=== PATIENT | male | born 1990 | race Caucasian/White ===

== ENCOUNTER 2016-09-07 10:42 | Inpatient (IN) | payer OTHER ==
[~2016-09-07 10:42] MED LIST: DOXY100T PO; SULF1TAB47 PO
[2016-09-07 10:44] VITALS: BP 143/98; PULSE 80; RESP 24; TEMP 97.7; O2SAT 96
--- NOTE | 2016-09-07 11:08 | PD ---
Physical Exam Time Seen by Provider: 11:04 Narrative 26yo M c/o low back pain x 2 months w/ worsening last night. +IVD use last night. Injected heroin. Hx of kidney failure. Denies dysuria, hematuria. Denies fever, vomiting. Patient seen in triage. VS reviewed. Awaiting bed placement. Data Data Last Documented VS Vital Signs Date Time Temp Pulse Resp B/P Pulse Ox O2 Delivery O2 Flow Rate FiO2 09/07/16 10:44 97.7 80 24 143/98 96 Room Air [facility] Supervised Visit with MATHEW: Iliana Hanks Sep 07, 2016 11:08
[2016-09-07] MEDS ORDERED: SODIUM CHLORIDE 0.9% FLUSH 10 ML FLUSH IVF PRN (11:15)
--- NOTE | 2016-09-07 11:17 | PD ---
HPI Chief Complaint: Back/ Neck Pain or Injury Time Seen by Provider: 11:17 Travel History International Travel<30 days: No Contact w/Intl Traveler<30days: No Traveled to known affect area: No History of Present Illness HPI 26-year-old male who is an IV drug abuser came to the emergency room for little progressing backache. Today he seems to be very uncomfortable and barely able to ambulate. Patient is not sure what started his pain. No history of trauma that he knows of upon asking he points to the right flank area with the pain. Patient used heroin prior to coming in. Vital signs were stable but patient looked extremely uncomfortable. No history of fever or chills. However patient used heroin prior to coming to the emergency room this morning. No history of future area. [facility] Past Medical History Narrative Medical List of his past medical, surgical, social and family history as reviewed from the nursing note. Anxiety: Yes Depression: Yes Diminished Hearing: No Immunizations Current: Yes Past Surgical History Tonsillectomy: Yes Social History Alcohol Use: Yes Tobacco Use: Yes Substance Use: Yes (MARIJUANA) Allergies-Medications (Allergen,Severity, Reaction): Coded Allergies: Ceclor (Verified Adverse Reaction, Intermediate, RASH AND HIVES, 09/07/16) Uncoded Allergies: CYCLORE (Allergy, Unknown, 03/15/09) Comments List of his allergies reviewed from the nursing note. Reported Meds & Prescriptions Reported Meds & Active Scripts Active No Active Prescriptions or Reported Medications Narrative Medication List of his home medications are reviewed from the nursing note. Review of Systems Except as stated in HPI: all other systems reviewed are Neg Physical Exam Narrative GENERAL: Awake, alert, moderate distress SKIN: Focused skin assessment warm/dry. HEAD: Atraumatic. Normocephalic. EYES: Pupils equal and round. No scleral icterus. No injection or drainage. ENT: No nasal bleeding or discharge. Mucous membranes dry NECK: Trachea midline. No JVD. CARDIOVASCULAR: Regular rate and rhythm. No murmur appreciated. RESPIRATORY: No accessory muscle use. Clear to auscultation. Breath sounds equal bilaterally. GASTROINTESTINAL: Abdomen soft, non-tender, nondistended. Hepatic and splenic margins not palpable. Right flank tenderness MUSCULOSKELETAL: No obvious deformities. No clubbing. No cyanosis. No edema. NEUROLOGICAL: Awake and alert. No obvious cranial nerve deficits. Motor grossly within normal limits. Normal speech. PSYCHIATRIC: Appropriate mood and affect; insight and judgment normal. Data Data Last Documented VS Vital Signs Date Time Temp Pulse Resp B/P Pulse Ox O2 Delivery O2 Flow Rate FiO2 09/07/16 16:40 66 16 135/89 99 Room Air 09/07/16 10:44 97.7 Orders Sodium Chloride 0.9% Flush (Ns Flush) (09/07/16 11:15) Complete Blood Count With Diff (09/07/16 11:21) Comprehensive Metabolic Panel (09/07/16 11:21) Lactic Acid Sepsis Protocol (09/07/16 11:21) Urinalysis - C+S If Indicated (09/07/16 11:21) Blood Culture (09/07/16 11:21) Chest, Single Ap (09/07/16 11:21) Blood Glucose (09/07/16 11:21) Ecg Monitoring (09/07/16 11:21) Iv Access Insert/Monitor (09/07/16 11:21) Oximetry (09/07/16 11:21) Oxygen Administration (09/07/16 11:21) Sodium Chlor 0.9% 1000 Ml Inj (Ns 1000 M (09/07/16 11:21) Sodium Chlor 0.9% 1000 Ml Inj (Ns 1000 M (09/07/16 11:21) Sodium Chlor 0.9% 1000 Ml Inj (Ns 1000 M (09/07/16 11:21) Ct Abd/Pel W Iv Contrast(Rout) (09/07/16 ) Ketorolac Inj (Toradol Inj) (09/07/16 11:30) Morphine Inj (Morphine Inj) (09/07/16 11:30) Iohexol 350 Inj (Omnipaque 350 Inj) (09/07/16 13:01) Mri T Spine W & W/O Contrast (09/07/16 ) Lorazepam (Ativan) (09/07/16 14:30) Mri C Spine W&W/O Contrast (09/07/16 ) Gadodiamide Pf Inj (Omniscan Pf Inj) (09/07/16 15:40) Electrocardiogram (09/07/16 12:32) Piperacil-Tazo 4.5 Gm Premix (Zosyn 4.5 (09/07/16 16:45) Vancomycin Inj (Vancomycin Inj) (09/07/16 16:45) Admit Order (Ed Use Only) (09/07/16 16:52) Disc Aspiration/Biopsy (09/07/16 ) Labs Laboratory Tests Test 09/07/16 09/07/16 11:40 12:25 White Blood Count 8.1 TH/MM3 Red Blood Count 5.67 MIL/MM3 Hemoglobin 14.5 GM/DL Hematocrit 45.2 % Mean Corpuscular Volume 79.8 FL Mean Corpuscular Hemoglobin 25.6 PG Mean Corpuscular Hemoglobin 32.1 % Concent Red Cell Distribution Width 16.3 % Platelet Count 225 TH/MM3 Mean Platelet Volume 8.2 FL Neutrophils (%) (Auto) 71.5 % Lymphocytes (%) (Auto) 17.1 % Monocytes (%) (Auto) 6.2 % Eosinophils (%) (Auto) 4.9 % Basophils (%) (Auto) 0.3 % Neutrophils # (Auto) 5.8 TH/MM3 Lymphocytes # (Auto) 1.4 TH/MM3 Monocytes # (Auto) 0.5 TH/MM3 Eosinophils # (Auto) 0.4 TH/MM3 Basophils # (Auto) 0.0 TH/MM3 CBC Comment DIFF FINAL Differential Comment Sodium Level 137 MEQ/L Potassium Level 4.0 MEQ/L Chloride Level 104 MEQ/L Carbon Dioxide Level 26.4 MEQ/L Anion Gap 7 MEQ/L Blood Urea Nitrogen 21 MG/DL Creatinine 0.94 MG/DL Estimat Glomerular Filtration 96 ML/MIN Rate Random Glucose 89 MG/DL Lactic Acid Level 0.7 mmol/L Calcium Level 9.1 MG/DL Total Bilirubin 0.2 MG/DL Aspartate Amino Transf 25 U/L (AST/SGOT) Alanine Aminotransferase 46 U/L (ALT/SGPT) Alkaline Phosphatase 87 U/L Total Protein 8.8 GM/DL Albumin 4.0 GM/DL Urine Color YELLOW Urine Turbidity CLEAR Urine pH 5.0 Urine Specific [place] 1.015 Urine Protein NEG mg/dL Urine Glucose (UA) NEG mg/dL Urine Ketones NEG mg/dL Urine Occult Blood NEG Urine Nitrite NEG Urine Bilirubin NEG Urine Urobilinogen LESS THAN 2.0 MG/DL Urine Leukocyte Esterase NEG Urine RBC LESS THAN 1 /hpf Urine WBC 1 /hpf Urine Squamous Epithelial <1 /hpf Cells Urine Mucus FEW /lpf Microscopic Urinalysis Comment CULT NOT INDICATED MDM Medical Decision Making Medical Screen Exam Complete: Yes Emergency Medical Condition: Yes Medical Record Reviewed: Yes Differential Diagnosis Renal colic, pyelonephritis, musculoskeletal pain Narrative Course 12:47 PM awaiting for the CAT scan to be done and resulted. Awaiting for the UA. Blood test results are within normal limit. Patient was medicated for pain. He is getting IV fluid bolus as well. Lactic acid was within normal limit. 1:[address] scan showed disc space narrowing at T11-T12 and radiologist is recommending an MRI. MRI with and without contrast was ordered. Awaiting for the to be done and resulted. 4:48 PM MRI report shows discitis and osteomyelitis at T11-T12 level. Patient has been given a broad-spectrum IV antibiotic coverage. Awaiting for the neurosurgeon and hospitalist to call back for admission. 4:58 PM I discussed the case with the neurosurgeon and he wanted IR to do the aspiration of the disc and to send for culture and hold the antibiotic until then. 5:03 PM case was discussed with Dr. Sarmiento from radiology who will take the patient for aspiration. And has been made aware of this and his hospitalization. He understands. Critical Care Narrative Aggregate critical care time was 45 minutes. Time to perform other separately billable procedures was not included in the critical care time. My time did not include minutes spent treating any other patients simultaneously or on activities that did not directly contribute to the patient's treatment. The services I provided to this patient were to treat and/or prevent clinically significant deterioration that could result in: Severe back pain, IV drug abuser, discitis, osteomyelitis I provided critical care services requiring my management, as noted below: Chart data review, documentation time, medication orders and management, vital sign assessments/reviewing monitor data, ordering and reviewing lab tests, ordering and interpreting/reviewing x-rays and diagnostic studies, care of the patient and discussion of the patient with the admitting physicians. Procedures EKG Prior to Arrival: No Physician Communication Physician Communication Dr. Leonard Diagnosis Primary Impression: Discitis of thoracic region Additional Impression: Osteomyelitis Qualified Code: M86.08 - Acute hematogenous osteomyelitis of other site Admitting Information Admitting Physician Requests: Admit Scripts No Active Prescriptions or Reported Meds Lolis Yates MD Sep 07, 2016 11:17
[2016-09-07 11:18] VITALS: BP 156/104; PULSE 82; RESP 22; O2SAT 100
[2016-09-07] MEDS ORDERED: SODIUM CHLOR 0.9% 1000 ML INJ 100 ML IV ONE (11:21)
[2016-09-07] MEDS ORDERED: SODIUM CHLOR 0.9% 1000 ML INJ 1,000 ML IV ONE ×2 (11:21)
[2016-09-07] MEDS ORDERED: MORPHINE SULFATE 4 MG/ML INJ IV PUSH ONE (11:30)
[2016-09-07] MEDS ORDERED: KETOROLAC TROMETHAMINE 30 MG/ML (IVP) VIAL IV PUSH ONE (11:30)
[2016-09-07 12:09] LABS: AUTOMATED NEUTROPHIL # 5.8 TH/MM3 (1.8-7.7); BASOPHIL % 0.3 % (0.0-2.0); EOSINOPHIL # 0.4 TH/MM3 (0-0.4); EOSINOPHIL % 4.9 % (0.0-4.0); HEMATOCRIT 45.2 % (39.0-51.0); HEMO FLAGS DIFF FINAL; LYMPH % 17.1 % (9.0-44.0); LYMPHOCYTE # 1.4 TH/MM3 (1.0-4.8); MEAN CELL VOLUME 79.8 FL (80.0-100.0); MEAN CORPUSCULAR HEMOGLOBIN 25.6 PG (27.0-34.0); MEAN CORPUSCULAR HGB CONC 32.1 % (32.0-36.0); MONO % 6.2 % (0.0-8.0); NEUT % 71.5 % (16.0-70.0); PLATELET COUNT 225 TH/MM3 (150-450); RED BLOOD COUNT 5.67 MIL/MM3 (4.50-5.90); RED CELL DISTRIBUTION WIDTH 16.3 % (11.6-17.2); WHITE BLOOD COUNT 8.1 TH/MM3 (4.0-11.0)
[2016-09-07 12:24] LABS: ALT (GPT) 46 U/L (12-78); ANION GAP 7 MEQ/L (5-15); AST (GOT) 25 U/L (15-37); BICARBONATE 26.4 MEQ/L (21.0-32.0); BLOOD UREA NITROGEN 21 MG/DL (7-18); CHLORIDE 104 MEQ/L (98-107); GLOMERULAR FILTRATION RATE 96 ML/MIN (>89); SODIUM (NA) 137 MEQ/L (136-145)
[2016-09-07 12:26] LABS: ALKALINE PHOSPHATASE 87 U/L (45-117); TOTAL BILIRUBIN ADULT 0.2 MG/DL (0.2-1.0)
--- NOTE | 2016-09-07 13:00 | RADRPT ---
EXAM DATE/TIME: 09/07/2016 12:26 [facility] COMPARISON: CHEST SINGLE AP, March 15, 2009, 6:54. INDICATIONS : Cough. MEDICAL HISTORY : None. SURGICAL HISTORY : None. ENCOUNTER: Initial ACUITY: 1 day PAIN SCORE: 0/10 LOCATION: Bilateral chest FINDINGS: A single view of the chest demonstrates the lungs to be symmetrically aerated without evidence of mas s, infiltrate or effusion. The cardiomediastinal contours are unremarkable. Osseous structures are intact. CONCLUSION: 1. No acute cardiopulmonary findings. Stable compared to previous dated 03/15/09. Audi Sarmiento MD on September 07, 2016 at 12:57 Board Certified Radiologist. This report was verified electronically.
[2016-09-07] MEDS ORDERED: IOHEXOL 350 MG/ML 10 ML VIAL (for RAD DIAG) IV ONE (13:01)
[2016-09-07 13:02] LABS: BLOOD, URINE NEG (NEG); COMMENT (UR) CULT NOT INDICATED; CULTURE IF INDICATED CULT NOT INDICATED; GLUCOSE,URINE NEG (NEG); KETONE, URINE NEG (NEG); MUCUS URINE FEW /lpf (OCC); NITRITE,URINE NEG (NEG); SQUAMOUS EPITHELIAL CELL URINE <1 /hpf (0-5); URINE COLOR YELLOW (YELLW/STRAW)
--- NOTE | 2016-09-07 13:24 | RADRPT ---
EXAM DATE/TIME: 09/07/2016 12:48 [facility] COMPARISON: No previous studies available for comparison. INDICATIONS : Lower back pain for two months. IV CONTRAST: 96 cc Omnipaque 350 (iohexol) IV ORAL CONTRAST: No oral contrast ingested. RADIATION DOSE: 4.64 CTDIvol (mGy) MEDICAL HISTORY : None Iv drug use. SURGICAL HISTORY : None. ENCOUNTER: Initial ACUITY: 1 day PAIN SCALE: 5/10 LOCATION: Bilateral lower back TECHNIQUE: Volumetric scanning of the abdomen and pelvis was performed. Using automated exposure control and adjustment of the mA and/or kV according to patient size, radiation dose was kept as low as reasonably achievable to obtain optimal diagnostic quality images. FINDINGS: LOWER LUNGS: The visualized lower lungs are clear. LIVER: Homogeneous density without lesion. There is no dilation of the biliary tree. No calcifi ed gallstones. SPLEEN: Mild splenomegaly is noted. PANCREAS: Within normal limits. KIDNEYS: Normal in size and shape. There is no mass, stone or hydronephrosis. ADRENAL GLANDS: Within normal limits. VASCULAR: There is no aortic aneurysm. BOWEL/MESENTERY: The stomach, small bowel, and colon demonstrate no acute abnormality. There is no free intraperitoneal air or fluid. ABDOMINAL WALL: Within normal limits. RETROPERITONEUM: There is no lymphadenopathy. BLADDER: No wall thickening or mass. REPRODUCTIVE: Within normal limits. INGUINAL: There is no lymphadenopathy or hernia. MUSCULOSKELETAL: There is disc space narrowing at T11-12 as well as sclerosis surrounding this di sc level. MRI of the thoracic spine with contrast may be helpful for further evaluation if clinically indicated. CONCLUSION: 1. Mild splenomegaly. 2. Disc space narrowing at T11-12 as well as sclerosis surrounding this disc level. MRI of the thorac ic spine with contrast may be helpful for further evaluation if clinically indicated. Yonatan Cruz MD on September 07, 2016 at 13:17 Board Certified Radiologist. This report was verified electronically.
[2016-09-07 13:47] VITALS: BP 128/87; PULSE 61; RESP 16; O2SAT 99
[2016-09-07] MEDS ORDERED: LORazepam 1 MG TAB PO ONE (14:30)
[2016-09-07] MEDS ORDERED: GADODIAMIDE PF 287 MG/ML 5 ML VIAL (for RAD MRI) IV ONE (15:40)
--- NOTE | 2016-09-07 16:27 | RADRPT ---
EXAM DATE/TIME: 09/07/2016 15:08 [facility] COMPARISON: No previous studies available for comparison. INDICATIONS : Pain. Neck pain starting six months ago, no known injury. CONTRAST: 13 cc Omniscan (gadodiamide) IV MEDICAL HISTORY : None. IVDU. SURGICAL HISTORY : Hand. ENCOUNTER: Initial ACUITY: 1 day PAIN SCORE: 3/10 LOCATION: Back. TECHNIQUE: Multiplanar, multisequence MRI examination of the cervical spine was performed. FINDINGS: Alignment: A grade 2 retrolisthesis is noted of C6 on C7. Craniocervical and cervical vertebral body alignment i s otherwise well preserved. Osseous structures and facet joints: Deformity is identified of the C6 and C7 vertebral bodies. Both vertebral bodies demonstrate loss of height. There is a least partial ankylosis with fusion along the endplates. The disc space is no long er visualized. The retrolisthesis as well as posterior buckling of the vertebral bodies has resulted in anterior epidural effacement which abuts but does not significantly efface the spinal cord. Mild T 2 hyperintensity and enhancement is seen in the disc space. There is mild enhancement of the anterior epidural soft tissues along the posterior vertebral body margin at C6 and C7. There are no abnormal fluid collections or significant soft tissue swelling or paraspinal soft tissue enhancement.Cervical vertebral bodies and posterior elements are otherwise unremarkable. Intervertebral disc spaces: The C6-7 intervertebral disc is completely collapsed and as described above there is at least partial ankylosis of the vertebral bodies. The cervical disc are otherwise unremarkable. There is no evidence of focal disc herniation, increase d T2 signal or enhancement. Neurologic structures: The spinal cord is normal in caliber and signal intensity. There is slight abutment at the C6-7 level as described. There is no evidence of abnormal enhancement. CONCLUSION: Deformity of the C6 and C7 vertebral bodies with collapse of the disc and suspected p artial ankylosis. There is mild enhancement along fused endplates and anterior epidural soft tissue w hich may represent scar tissue. These findings are most characteristic of either posttraumatic or pos tinflammatory disease. No significant active inflammatory disease is suspected. There is no evidence of epidural or paraspin al abscess or abnormal spinal cord enhancement. No acute bony abnormality or disc herniation. Farhat Johnson MD on September 07, 2016 at 16:13 Board Certified Radiologist. This report was verified electronically.
--- NOTE | 2016-09-07 16:34 | RADRPT ---
EXAM DATE/TIME: 09/07/2016 15:08 [facility] COMPARISON: No previous studies available for comparison. INDICATIONS : Pain. Back pain started three months ago with no known injury. CONTRAST: 13 cc Omniscan (gadodiamide) IV MEDICAL HISTORY : Hypertension. IVDU. SURGICAL HISTORY : Hand surgery. ENCOUNTER: Initial ACUITY: 1 day PAIN SCORE: 4/10 LOCATION: Back. TECHNIQUE: Multiplanar multisequence MRI of the thoracic spine was performed. FINDINGS: Alignment: Thoracic vertebral bodies are satisfactory alignment without significant listhesis. Osseous structures and facet joints: Diffuse bone marrow edema and abnormal enhancement is identified throughout the T11 and T12 vertebral bodies. Significant endplate irregularity is noted. Significant paraspinal soft tissue enhancement is noted especially along the left side of the disc. Thoracic vertebral bodies are otherwise intact. Intervertebral disc spaces: The T11-12 intervertebral disc demonstrates enteric intensity with diffuse enhancement. Significant e ndplate irregularity is noted. The thoracic intervertebral discs are otherwise unremarkable. Neurologic structures: Spinal cord is normal in caliber and signal intensity. There is no evidence of epidural fluid collect ions. CONCLUSION: T11-12 discitis with diffuse enhancement of the T11 and T12 vertebral bodies characte ristic of osteomyelitis. Paraspinal inflammatory tissue. No evidence of epidural abscess or myelitis. Farhat Johnson MD on September 07, 2016 at 16:25 Board Certified Radiologist. This report was verified electronically.
[2016-09-07 16:40] VITALS: BP 135/89; PULSE 66; RESP 16; O2SAT 99
[2016-09-07] MEDS ORDERED: VANCOMYCIN INJ 1,000 MG in SODIUM CHLOR 0.9% 250 ML INJ 250 ML IV ONE (16:45)
[2016-09-07] MEDS: PIPERACIL-TAZO 4.5 GM PREMIX 100 ML IV ONE ×2 (16:58→18:39)
[2016-09-07 17:38] LABS: PROTHROMBIN TIME - PATIENT 11.2 SEC (9.8-11.6)
[2016-09-07] MEDS ORDERED: ENOXAPARIN SODIUM 40 MG/0.4 ML SYRINGE SQ SCH (17:45)
[2016-09-07] MEDS ORDERED: MAGNESIUM HYDROXIDE SUSP 30 ML CUP PO PRN (17:45)
[2016-09-07] MEDS ORDERED: ONDANSETRON HCL 4 MG/2 ML VIAL IVP PRN (17:45)
[2016-09-07] MEDS ORDERED: NALOXONE HCL 0.4 MG/ML AMP IV PRN (17:45)
[2016-09-07] MEDS ORDERED: BISACODYL 10 MG SUPP RECTAL PRN (17:45)
[2016-09-07] MEDS ORDERED: LACTULOSE SYRUP 20 GM/30 ML CUP PO PRN (17:45)
[2016-09-07] MEDS ORDERED: SENNOSIDES 8.6 MG TAB PO PRN (17:45)
[2016-09-07] MEDS ORDERED: fentaNYL CITRATE 250 MCG/5 ML AMP ONE (17:50)
[2016-09-07] MEDS ORDERED: MIDAZOLAM HCL 5 MG/5 ML VIAL ONE (17:50)
--- NOTE | 2016-09-07 18:00 | HHI.HP ---
[facility] No Primary Care Physician Admission Diagnosis discitis, osteomyelitis, IV drug abuser Diagnoses: Chief Complaint: Intractable lower back pain Travel History International Travel<30 Days: No Contact w/Intl Traveler <30 Da: No Traveled to Known Affected Are: No History of Present Illness This is a 26-year-old male past medical history of IV drug use drug of choice is heroin who presented with intractable lower back pain. Patient stated 6 months ago he had lower back pain that was intermittent and resolved on its own. Patient then stated that 3 months ago pain occurred again but he started methadone from the methadone clinic in which pain resolved. Patient stated that he stopped methadone 2 weeks ago and did well off of it. He then stated that yesterday night after doing pushups he had severe lower back pain described as sharp radiating to his flank area that was constant. Patient stated last time he used IV drugs was 2 years ago. He denies any fevers or chills. Denies any lower extremity weakness. Patient also denied any urinary or fecal incontinence. Patient stated that he was given 95 mg daily of methadone but stopped it abruptly. He stated that he has a high tolerance for pain. Review of Systems Constitutional: DENIES: Diaphoretic episodes, Fatigue, Fever, Weight gain, Weight loss, Chills, Dizziness, Change in appetite, Night Sweats Endocrine: DENIES: Heat/cold intolerance, Polydipsia, Polyuria, Polyphagia Eyes: DENIES: Blurred vision, Diplopia, Eye inflammation, Eye pain, Vision loss , Photosensitivity, Double Vision Ears, nose, mouth, throat: DENIES: Tinnitus, Hearing loss, Vertigo, Nasal discharge, Oral lesions, Throat pain, Hoarseness, Ear Pain, Running Nose, Epistaxis, Sinus Pain, Toothache, Odynophagia Respiratory: DENIES: Apneas, Cough, Snoring, Wheezing, Hemoptysis, Sputum production, Shortness of breath Cardiovascular: DENIES: Chest pain, Palpitations, Syncope, Dyspnea on Exertion , PND, Lower Extremity Edema, Orthopnea, Claudication Gastrointestinal: DENIES: Abdominal pain, Black stools, Bloody stools, Constipation, Diarrhea, Nausea, Vomiting, Difficulty Swallowing, Anorexia Genitourinary: DENIES: Sexual dysfunction, Urinary frequency, Urinary incontinence, Urgency, Hematuria, Dysuria, Nocturia, Penile Discharge, Testicular Pain, Testicular Swelling Musculoskeletal: COMPLAINS OF: Back pain, DENIES: Joint pain, Muscle aches, Stiffness, Joint Swelling, Neck pain Integumentary: DENIES: Abnormal pigmentation, Nail changes, Pruritus, Rash Hematologic/lymphatic: DENIES: Bruising, Lymphadenopathy Immunologic/allergic: DENIES: Eczema, Urticaria Neurologic: DENIES: Abnormal gait, Headache, Localized weakness, Paresthesias, Seizures, Speech Problems, Tremor, Poor Balance Psychiatric: DENIES: Anxiety, Confusion, Mood changes, Depression, Hallucinations, Agitation, Suicidal Ideation, Homicidal Ideation, Delusions Past Family Social History Past Medical History History of IV drug use with heroin. Per patient he stopped 2 years ago. Opioid dependence Tobacco dependence History of acute renal failure that required dialysis that resolved Past Surgical History History of a tunnel catheter for dialysis Reported Medications Reported Meds & Active Scripts Active No Active Prescriptions or Reported Medications Allergies: Coded Allergies: Ceclor (Verified Adverse Reaction, Intermediate, RASH AND HIVES, 09/07/16) Uncoded Allergies: CYCLORE (Allergy, Unknown, 03/15/09) Active Ordered Medications Current Medications Sodium Chloride 2 ml 2 ml UNSCH PRN IVF FLUSH AFTER USING IV ACCESS; Start at 11:15; Stop 09/07/16 at 11:15; Status DC Sodium Chloride 1,000 ml @ 1,000 mls/hr Q1H ONCE IV Last administered on 12:02; Start 09/07/16 at 11:21; Stop 09/07/16 at 12:20; Status DC Sodium Chloride 1,000 ml @ 1,000 mls/hr Q1H ONCE IV Last administered on 12:02; Start 09/07/16 at 11:21; Stop 09/07/16 at 12:20; Status DC Sodium Chloride (NS 1000 ml Inj) 100 ml @ 1,000 mls/hr Q6M ONCE IV ; Start at 11:21; Stop 09/07/16 at 11:26; Status DC Ketorolac Tromethamine (Toradol Inj) 30 mg ONCE ONCE IV PUSH Last administered on 09/07/16 12:03; Start 09/07/16 at 11:30; Stop 09/07/16 at 11:31 ; Status DC Morphine Sulfate (Morphine Inj) 4 mg ONCE ONCE IV PUSH Last administered on 12:02; Start 09/07/16 at 11:30; Stop 09/07/16 at 11:31; Status DC Iohexol (Omnipaque 350 Inj) 93 ml STK-MED ONCE IV Last administered on 13:01; Start 09/07/16 at 13:01; Stop 09/07/16 at 13:02; Status DC Lorazepam (Ativan) 1 mg ONCE ONCE PO Last administered on 09/07/16 14:44; Start 09/07/16 at 14:30; Stop 09/07/16 at 14:33; Status DC Gadodiamide 13 ml 13 ml STK-MED ONCE IV Last administered on 09/07/16 15:40; Start 09/07/16 at 15:40; Stop 09/07/16 at 15:41; Status DC Piperacillin Sod/ Tazobactam Sod 100 ml @ 200 mls/hr ONCE ONCE IV ; Start at 16:45; Stop 09/07/16 at 17:14; Status DC Vancomycin HCl 1000 mg/Sodium Chloride 250 ml @ 250 mls/hr ONCE ONCE IV ; Start 09/07/16 at 16:45; Stop 09/07/16 at 17:44; Status DC Sodium Chloride (NS 1000 ml Inj) 1,000 ml @ 100 mls/hr Q10H IV ; Start at 17:36; Status UNV Sodium Chloride (NS Flush) 2 ml UNSCH PRN IV FLUSH FLUSH AFTER USING IV ACCESS ; Start 09/07/16 at 17:45; Status UNV Sodium Chloride (NS Flush) 2 ml BID IV FLUSH ; Start 09/07/16 at 21:00; Status UNV Ondansetron HCl (Zofran Inj) 4 mg Q6H PRN IVP NAUSEA OR VOMITING; Start at 17:45; Status UNV Enoxaparin Sodium (Lovenox Inj) 40 mg Q24H SQ ; Start 09/07/16 at 17:45; Stop 6 /15/17 at 17:45; Status DC Naloxone HCl (Narcan Inj) 0.4 mg UNSCH PRN IV SEE LABEL COMMENTS; Start at 17:45; Status UNV Senna/Docusate Sodium (Simona-Colace) 1 tab BID PO ; Start 09/07/16 at 21:00; Status UNV Magnesium Hydroxide (Milk Of Magnesia Liq) 30 ml Q12H PRN PO MILD - MODERATE CONSTIPATION; Start 09/07/16 at 17:45; Status UNV Sennosides (Senokot) 17.2 mg Q12H PRN PO MODERATE - SEVERE CONSTIPATION; Start 09/07/16 at 17:45; Status UNV Bisacodyl (Dulcolax Supp) 10 mg DAILY PRN RECTAL SEVERE CONSITIPATION; Start at 17:45; Status UNV Lactulose (Lactulose Liq) 30 ml DAILY PRN PO SEVERE CONSITIPATION; Start at 17:45; Status UNV Nicotine (Habitrol 14 Mg Patch.24 Hr) 1 patch DAILY T-DERMAL ; Start 09/07/16 at 17:45; Status UNV Miscellaneous Information 1 HS T-DERMAL ; Start 09/07/16 at 21:00; Status UNV Midazolam HCl (Versed Inj) 5 mg STK-MED ONCE .ROUTE ; Start 09/07/16 at 17:50; Stop 09/07/16 at 17:51; Status DC Fentanyl Citrate (fentaNYL INJ) 250 mcg STK-MED ONCE .ROUTE ; Start 09/07/16 at 17:50; Stop 09/07/16 at 17:51; Status DC Family History Patient stated that all family members are healthy. He denies any history of diabetes, cardiovascular disease or cancer in the family. Social History Patient smokes half a pack per day for the past 10 years. Denies any alcohol use. Positive for opioid dependence. Physical Exam Vital Signs Vital Signs Date Time Temp Pulse Resp B/P Pulse Ox O2 Delivery O2 Flow Rate FiO2 09/07/16 16:40 66 16 135/89 99 Room Air 09/07/16 13:47 61 16 128/87 99 Room Air 09/07/16 11:18 82 22 156/104 100 Room Air 09/07/16 10:44 97.7 80 24 143/98 96 Room Air Physical Exam GENERAL: This is a well-nourished, well-developed patient, in no apparent distress. SKIN: No rashes, ecchymoses or lesions. Cool and dry. HEAD: Atraumatic. Normocephalic. No temporal or scalp tenderness. EYES: Pupils equal round and reactive. Extraocular motions intact. No scleral icterus. No injection or drainage. ENT: Nose without bleeding, purulent drainage or septal hematoma. Throat without erythema, tonsillar hypertrophy or exudate. Uvula midline. Airway patent. NECK: Trachea midline. No JVD or lymphadenopathy. Supple, nontender, no meningeal signs. CARDIOVASCULAR: Regular rate and rhythm without murmurs, gallops, or rubs. RESPIRATORY: Clear to auscultation. Breath sounds equal bilaterally. No wheezes , rales, or rhonchi. GASTROINTESTINAL: Abdomen soft, non-tender, nondistended. No hepato-splenomegaly , or palpable masses. No guarding. MUSCULOSKELETAL: Extremities without clubbing, cyanosis, or edema. No joint tenderness, effusion, or edema noted. No calf tenderness. Negative Homans sign bilaterally. Tenderness to palpation of the lower back. No paraspinal muscle spasm. Lower back Limited range of motion secondary to pain. NEUROLOGICAL: Awake and alert. Cranial nerves II through XII intact. Motor and sensory grossly within normal limits. Five out of 5 muscle strength in all muscle groups. Normal speech. Laboratory Laboratory Tests Test 09/07/16 09/07/16 09/07/16 11:40 12:25 17:03 White Blood Count 8.1 Red Blood Count 5.67 Hemoglobin 14.5 Hematocrit 45.2 Mean Corpuscular Volume 79.8 Mean Corpuscular Hemoglobin 25.6 Mean Corpuscular Hemoglobin 32.1 Concent Red Cell Distribution Width 16.3 Platelet Count 225 Mean Platelet Volume 8.2 Neutrophils (%) (Auto) 71.5 Lymphocytes (%) (Auto) 17.1 Monocytes (%) (Auto) 6.2 Eosinophils (%) (Auto) 4.9 Basophils (%) (Auto) 0.3 Neutrophils # (Auto) 5.8 Lymphocytes # (Auto) 1.4 Monocytes # (Auto) 0.5 Eosinophils # (Auto) 0.4 Basophils # (Auto) 0.0 CBC Comment DIFF FINAL Differential Comment Sodium Level 137 Potassium Level 4.0 Chloride Level 104 Carbon Dioxide Level 26.4 Anion Gap 7 Blood Urea Nitrogen 21 Creatinine 0.94 Estimat Glomerular Filtration 96 Rate Random Glucose 89 Lactic Acid Level 0.7 Calcium Level 9.1 Total Bilirubin 0.2 Aspartate Amino Transf 25 (AST/SGOT) Alanine Aminotransferase 46 (ALT/SGPT) Alkaline Phosphatase 87 Total Protein 8.8 Albumin 4.0 Urine Color YELLOW Urine Turbidity CLEAR Urine pH 5.0 Urine Specific [place] 1.015 Urine Protein NEG Urine Glucose (UA) NEG Urine Ketones NEG Urine Occult Blood NEG Urine Nitrite NEG Urine Bilirubin NEG Urine Urobilinogen LESS THAN 2.0 Urine Leukocyte Esterase NEG Urine RBC LESS THAN 1 Urine WBC 1 Urine Squamous Epithelial <1 Cells Urine Mucus FEW Microscopic Urinalysis Comment CULT NOT INDICATED Prothrombin Time 11.2 Prothromb Time International 1.0 Ratio Date/Time Procedure Status Source Growth 09/07/16 11:45 Aerobic Blood Culture Received Blood Peripheral Pending 09/07/16 11:45 Anaerobic Blood Culture Received Blood Peripheral Pending Result Diagram: 09/07/16 1140 09/07/16 1140 Imaging Last Impressions Chest X-Ray 09/07/16 1121 Signed Impressions: Service Date/Time: August 12:26 - CONCLUSION: 1. No acute cardiopulmonary findings. Stable compared to previous dated 03/15/09. Audi Sarmiento MD Thoracic Spine MRI 09/07/16 0000 Signed Impressions: Service Date/Time: August 15:08 - CONCLUSION: T11-12 discitis with diffuse enhancement of the T11 and T12 vertebral bodies characteristic of osteomyelitis. Paraspinal inflammatory tissue. No evidence of epidural abscess or myelitis. Farhat Johnson MD Cervical Spine MRI 09/07/16 0000 Signed Impressions: Service Date/Time: August 15:08 - CONCLUSION: Deformity of the C6 and C7 vertebral bodies with collapse of the disc and suspected partial ankylosis. There is mild enhancement along fused endplates and anterior epidural soft tissue which may represent scar tissue. These findings are most characteristic of either posttraumatic or postinflammatory disease. No significant active inflammatory disease is suspected. There is no evidence of epidural or paraspinal abscess or abnormal spinal cord enhancement. No acute bony abnormality or disc herniation. Farhat Johnson MD Abdomen/Pelvis CT 09/07/16 0000 Signed Impressions: Service Date/Time: August 12:48 - CONCLUSION: 1. Mild splenomegaly. 2. Disc space narrowing at T11-12 as well as sclerosis surrounding this disc level. MRI of the thoracic spine with contrast may be helpful for further evaluation if clinically indicated. Yonatan Cruz MD Assessment and Plan Assessment and Plan Intractable lower back pain in a patient with history of IV drug use -MRI of the cervical and thoracic spine showed T11-12 discitis with diffuse enhancement of the T11 and T12 vertebral bodies characteristic of osteomyelitis. Paraspinal inflammatory tissue. Deformity of the C6 and C7 vertebral bodies with collapse of the disc and suspected partial ankylosis. -2 for concerns of osteomyelitis patient scheduled for bone aspiration today with Dr. Sarmiento interventional radiologist. Once aspiration obtained can start antibiotics. Patient shows no signs of sepsis. He is stable. -Neurosurgeon Dr. Leonard is aware patient and consulted by emergency medicine physician Dr. Dave. -Will need to give pain medication due to intractable lower back pain but will have to be cautious due to his history of IV drug use. -We will also consult infectious disease since patient most likely will need long-term IV antibiotics. T11 to 12 discitis / osteomyelitis -See treatment as above. History of IV drug use -Patient stated that he stopped any IV drug use 2 years ago. Opioid dependence -Patient stopped methadone 2 weeks ago. He was being seen in methadone clinic. Tobacco dependence -Smoking cessation. -Nicotine patch ordered. DVT prophylaxis -SCDs. Once patient has biopsy will start chemoprophylaxis. Code Status full Discussed Condition With patient Physician Certification 2 Midnight Certification Type: Admission for Inpatient Services Order for Inpatient Services The services are ordered in accordance with Medicare regulations or non- Medicare payer requirements, as applicable. In the case of services not specified as inpatient-only, they are appropriately provided as inpatient services in accordance with the 2-midnight benchmark. Estimated LOS (days): 7 7 days is the estimated time the patient will need to remain in the hospital, assuming treatment plan goals are met and no additional complications. Post-Hospital Plan: [facility] Yaquelin Aguilar MD Sep 07, 2016 18:00
--- NOTE | 2016-09-07 18:24 | PD.RAD ---
Post Procedure Progress Note Pre Procedure Diagnosis: (1) Osteomyelitis (2) Discitis of thoracic region Post Procedure Diagnosis: (1) Osteomyelitis (2) Discitis of thoracic region Procedure Date: Sep 07, 2016 Supervising Radiologist: Audi Sarmiento Anesthesia: Local, Conscious Sedation Plan of Activity Patient to Unit: Other Patient Condition: Fair Additional Comments: Disc aspiration at T11/T12 completed without difficulty. Samples sent to pathology. Pt. tolerated the procedure well See PACS Report for procedural detail/treatment Audi Sarmiento MD Sep 07, 2016 18:24
[2016-09-07] MEDS: NICOTINE 14 MG/24 HR PATCH T-DERMAL SCH (18:47)
[2016-09-07] MEDS: SODIUM CHLOR 0.9% 1000 ML INJ 1,000 ML IV SCH (18:47)
[2016-09-07 19:17] VITALS: BP 125/79; PULSE 61; RESP 18; O2SAT 98
[2016-09-07] MEDS: REMOVE OLD PATCH T-DERMAL SCH (21:00)
[2016-09-07] MEDS: SODIUM CHLORIDE 0.9% FLUSH 10 ML FLUSH IV FLUSH SCH (21:00)
[2016-09-07 21:22] VITALS: BP 155/92; PULSE 70; RESP 22; TEMP 96.1; O2SAT 100
[2016-09-07] MEDS: MORPHINE SULFATE 4 MG/ML INJ IV PUSH PRN (22:09)
[2016-09-07] MEDS: DOCUSATE SODIUM 50 MG/SENNA 8.6 MG TAB PO SCH (22:10)
[2016-09-08] VITALS: BP 150/97; PULSE 61; RESP 22; TEMP 98.3; O2SAT 100
[2016-09-08] MEDS: MORPHINE SULFATE 4 MG/ML INJ IV PUSH PRN ×7 (01:14→23:50)
[2016-09-08] MEDS: SODIUM CHLORIDE 0.9% FLUSH 10 ML FLUSH IV FLUSH PRN ×2 (01:14→05:21)
[2016-09-08] MEDS: SODIUM CHLOR 0.9% 1000 ML INJ 1,000 ML IV SCH ×3 (04:05→23:51)
[2016-09-08] MEDS: NICOTINE 14 MG/24 HR PATCH T-DERMAL SCH (07:45)
[2016-09-08] MEDS: DOCUSATE SODIUM 50 MG/SENNA 8.6 MG TAB PO SCH ×2 (07:47→20:34)
[2016-09-08] MEDS: SODIUM CHLORIDE 0.9% FLUSH 10 ML FLUSH IV FLUSH SCH ×2 (07:48→20:34)
[2016-09-08 08:00] VITALS: BP 142/98; PULSE 62; RESP 14; TEMP 97.9; O2SAT 99
[2016-09-08] MEDS ORDERED: Vancomycin Consult Pharmacy 1 EA OTHER SCH (09:15)
--- NOTE | 2016-09-08 09:17 | HHI.PR ---
Subjective Remarks f/u for infection and intractable back pain. patient stated pain medication is not working for him. he also asked to restart his iron supplement despite tell him Hg is normal. Patient also upset that he has not gotten his breakfast yet. he stated he ordered that 1 hour ago. no other complaints. remains afebrile. Objective Vitals Vital Signs Date Time Temp Pulse Resp B/P Pulse Ox O2 Delivery O2 Flow Rate FiO2 09/08/16 00:00 98.3 61 22 150/97 100 09/07/16 21:22 96.1 70 22 155/92 100 09/07/16 19:17 61 18 125/79 98 Room Air 09/07/16 16:40 66 16 135/89 99 Room Air 09/07/16 13:47 61 16 128/87 99 Room Air 09/07/16 11:18 82 22 156/104 100 Room Air 09/07/16 10:44 97.7 80 24 143/98 96 Room Air I/O 09/07/16 09/07/16 09/07/16 09/08/16 09/08/16 09/08/16 07:00 15:00 23:00 07:00 15:00 23:00 Intake Total 240 ml 480 ml Output Total 700 ml 500 ml 800 ml 350 ml Balance -700 ml -260 ml -320 ml -350 ml Intake Oral 240 ml 480 ml Output Urine Total 700 ml 500 ml 800 ml 350 ml # Voids 1 2 # Bowel Movements 0 0 Result Diagram: 09/07/16 1140 09/07/16 1140 Objective Remarks GENERAL: in NAD CARDIOVASCULAR: Regular rate and rhythm without murmurs, gallops, or rubs. RESPIRATORY: Breath sounds equal bilaterally. No accessory muscle use. GASTROINTESTINAL: Abdomen soft, non-tender, nondistended. MUSCULOSKELETAL: No cyanosis, or edema. + TTP of mid to lower back. Medications and IVs Current Medications Sodium Chloride 2 ml 2 ml UNSCH PRN IVF FLUSH AFTER USING IV ACCESS; Start at 11:15; Stop 09/07/16 at 11:15; Status DC Sodium Chloride 1,000 ml @ 1,000 mls/hr Q1H ONCE IV Last administered on t 12:02; Start 09/07/16 at 11:21; Stop 09/07/16 at 12:20; Status DC Sodium Chloride 1,000 ml @ 1,000 mls/hr Q1H ONCE IV Last administered on 12:02; Start 09/07/16 at 11:21; Stop 09/07/16 at 12:20; Status DC Sodium Chloride (NS 1000 ml Inj) 100 ml @ 1,000 mls/hr Q6M ONCE IV ; Start at 11:21; Stop 09/07/16 at 11:26; Status DC Ketorolac Tromethamine (Toradol Inj) 30 mg ONCE ONCE IV PUSH Last administered on 09/07/16 12:03; Start 09/07/16 at 11:30; Stop 09/07/16 at 11:31 ; Status DC Morphine Sulfate (Morphine Inj) 4 mg ONCE ONCE IV PUSH Last administered on 12:02; Start 09/07/16 at 11:30; Stop 09/07/16 at 11:31; Status DC Iohexol (Omnipaque 350 Inj) 93 ml STK-MED ONCE IV Last administered on 13:01; Start 09/07/16 at 13:01; Stop 09/07/16 at 13:02; Status DC Lorazepam (Ativan) 1 mg ONCE ONCE PO Last administered on 09/07/16 14:44; Start 09/07/16 at 14:30; Stop 09/07/16 at 14:33; Status DC Gadodiamide 13 ml 13 ml STK-MED ONCE IV Last administered on 09/07/16 15:40; Start 09/07/16 at 15:40; Stop 09/07/16 at 15:41; Status DC Piperacillin Sod/ Tazobactam Sod 100 ml @ 200 mls/hr ONCE ONCE IV Last administered on 09/07/16 18:39; Start 09/07/16 at 16:45; Stop 09/07/16 at 17:14 ; Status DC Vancomycin HCl 1000 mg/Sodium Chloride 250 ml @ 250 mls/hr ONCE ONCE IV Last administered on 09/07/16 19:28; Start 09/07/16 at 16:45; Stop 09/07/16 at 17:44 ; Status DC Sodium Chloride (NS 1000 ml Inj) 1,000 ml @ 100 mls/hr Q10H IV Last administered on 09/08/16 04:05; Start 09/07/16 at 18:00 Sodium Chloride (NS Flush) 2 ml UNSCH PRN IV FLUSH FLUSH AFTER USING IV ACCESS Last administered on 09/08/16 05:21; Start 09/07/16 at 17:45 Sodium Chloride (NS Flush) 2 ml BID IV FLUSH ; Start 09/07/16 at 21:00 Ondansetron HCl (Zofran Inj) 4 mg Q6H PRN IVP NAUSEA OR VOMITING; Start at 17:45 Enoxaparin Sodium (Lovenox Inj) 40 mg Q24H SQ ; Start 09/07/16 at 17:45; Stop at 17:45; Status DC Naloxone HCl (Narcan Inj) 0.4 mg UNSCH PRN IV SEE LABEL COMMENTS; Start at 17:45 Senna/Docusate Sodium (Simona-Colace) 1 tab BID PO Last administered on 22:10; Start 09/07/16 at 21:00 Magnesium Hydroxide (Milk Of Magnesia Liq) 30 ml Q12H PRN PO MILD - MODERATE CONSTIPATION; Start 09/07/16 at 17:45 Sennosides (Senokot) 17.2 mg Q12H PRN PO MODERATE - SEVERE CONSTIPATION; Start 09/07/16 at 17:45 Bisacodyl (Dulcolax Supp) 10 mg DAILY PRN RECTAL SEVERE CONSITIPATION; Start at 17:45 Lactulose (Lactulose Liq) 30 ml DAILY PRN PO SEVERE CONSITIPATION; Start at 17:45 Nicotine (Habitrol 14 Mg Patch.24 Hr) 1 patch DAILY T-DERMAL Last administered on 09/08/16 07:45; Start 09/07/16 at 17:45 Miscellaneous Information 1 HS T-DERMAL ; Start 09/07/16 at 21:00 Midazolam HCl (Versed Inj) 5 mg STK-MED ONCE .ROUTE Last administered on 17:50; Start 09/07/16 at 17:50; Stop 09/07/16 at 17:51; Status DC Fentanyl Citrate (fentaNYL INJ) 250 mcg STK-MED ONCE .ROUTE Last administered on 09/07/16 17:50; Start 09/07/16 at 17:50; Stop 09/07/16 at 17:51; Status DC Oxycodone HCl (Roxicodone) 5 mg Q4H PRN PO pain 1-7; Start 09/07/16 at 18:00 Oxycodone HCl (Roxicodone) 10 mg Q4H PRN PO pain 8-10 Last administered on 09/08 07:43; Start 09/07/16 at 18:00 Morphine Sulfate (Morphine Inj) 2 mg Q3H PRN IV PUSH pain 1-10 Last administered on 09/08/16 08:26; Start 09/07/16 at 18:00 A/P Assessment and Plan Intractable lower back pain in a patient with history of IV drug use -MRI of the cervical and thoracic spine showed T11-12 discitis with diffuse enhancement of the T11 and T12 vertebral bodies characteristic of osteomyelitis. Paraspinal inflammatory tissue. Deformity of the C6 and C7 vertebral bodies with collapse of the disc and suspected partial ankylosis. -s/p bone aspiration on 09/07/16 by IR. -patient given Zosyn and vancomycin after procedure. We'll continue with medication. ID consulted. -patient asking for increase in pain medication. Patient shows no signs of tachycardia looks comfortable. He has a history of IV drug use with heroin. We 'll continue her current regimen. Need to be very cautious with pain medication. I do not want to get patient addicted to pain medication again. T11 to 12 discitis / osteomyelitis -See treatment as above. History of IV drug use -Patient stated that he stopped any IV drug use 2 years ago. Opioid dependence -Patient stopped methadone 2 weeks ago. He was being seen in methadone clinic. Tobacco dependence -Smoking cessation. -on Nicotine patch. History of iron deficiency anemia -Patient hemoglobin is normal. Despite this he requests that he continues his iron. Will resume iron. DVT prophylaxis -SCDs. Will start Lovenox. Yaquelin Aguilar MD Sep 08, 2016 09:17
[2016-09-08] MEDS ORDERED: VANCOMYCIN INJ 1,000 MG in SODIUM CHLOR 0.9% 250 ML INJ 250 ML IV SCH ×2 (10:00→11:00)
--- NOTE | 2016-09-08 10:03 | RADRPT ---
EXAM DATE/TIME: 09/07/2016 18:08 [place] COMPARISON: No previous studies available for comparison. INDICATIONS : Patient presents with discitis in need of disc aspiration for further diagnosis. MEDICAL HISTORY : History of IV drug use with heroin Opioid dependence Tobacco dependence History of acute renal failure that required dialysis that resolved SURGICAL HISTORY : History of a tunnel catheter for dialysis ENCOUNTER: Subsequent ACUITY: Acute PAIN SCORE: 10/10 LOCATION: Lower back pain FLUORO TIME: 5.4 minutes IMAGE SERIES: 2 SEDATION TIME: 15 minutes MEDICATION(S): 1.) 5 mg midazolam (Versed) IV 2.) 250 mcg fentanyl (Sublimaze) IV DEVICE(S): 1.) 25g spinal needle PROCEDURE : 1. Fluoroscopically guided needle biopsy. 2. Conscious sedation with continuous EKG and Oximetry monitoring. The risks, benefits and alternatives to the procedure were explained and verbal and written consent w as obtained. The site was prepped in sterile fashion. Full sterile technique was used, including cap, mask, steri le gloves and gown and a large sterile sheet. Hand hygiene and 2% chlorhexidine and/or betadine/alco hol prep was utilized per protocol for cutaneous antisepsis. The skin and subcutaneous tissues were infiltrated with local anesthetic solution. With fluoroscopic guidance a 22 gauge needle was advanced an oblique path into the disc space at the T11/T12 level. Aspiration biopsy of the disc space was performed. A small amount of tissue and fluid returned. This was placed in sterile saline and sent to pathology for culture. The patient tolerated the procedure well. There is no immediate procedure complication. Conscious sedation was performed with the prescribed dosages and duration as above in the presence of an independent trained radiology nurse to assist in the monitoring of the patient. EKG and oximetry remained stable throughout the procedure. CONCLUSION: Uncomplicated needle biopsy of the T11/T12 disc space as above. Audi Sarmiento MD on September 08, 2016 at 9:59 Board Certified Radiologist. This report was verified electronically.
[2016-09-08] MEDS: FERROUS SULFATE 325 MG (65 MG ELEMENTAL IRON) TAB PO SCH ×2 (10:31→16:29)
[2016-09-08] MEDS: PIPERACIL-TAZO 3.375 GM PREMIX 50 ML IV SCH ×2 (10:31→16:29)
[2016-09-08] MEDS: ENOXAPARIN SODIUM 40 MG/0.4 ML SYRINGE SQ SCH (11:45)
[2016-09-08 12:00] VITALS: BP 128/82; PULSE 70; RESP 18; TEMP 97.8; O2SAT 98
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
[2016-09-08] MEDS: METHADONE HCL 10 MG TAB PO SCH ×2 (15:06→22:00)
[2016-09-08 16:00] VITALS: BP 137/93; PULSE 68; RESP 16; TEMP 98.3; O2SAT 99
[2016-09-08 20:00] VITALS: BP 117/68; PULSE 75; RESP 20; TEMP 98; O2SAT 96
[2016-09-08] MEDS: REMOVE OLD PATCH T-DERMAL SCH (20:37)
[2016-09-08] MEDS: LEVOFLOXACIN 750 MG PREMIX INJ 150 ML IV SCH (22:01)
--- NOTE | 2016-09-08 22:54 | EKG ---
Date Performed: 09/07/2016 Time Performed: 12:32:13 PTAGE: 26 years EKG: SINUS BRADYCARDIA WITH FIRST DEGREE AV BLOCK ABNORMAL ECG PREVIOUS TRACING : 03/15/2009 05.57 DOCTOR: Anderson Bryson Interpretating Date/Time 09/08/2016 22:53:33
[2016-09-08] MEDS: PIPERACIL-TAZO 4.5 GM PREMIX 100 ML IV SCH (23:51)
[2016-09-09] VITALS: BP 118/74; PULSE 76; RESP 20; TEMP 98.5; O2SAT 97
[2016-09-09] MEDS: PIPERACIL-TAZO 4.5 GM PREMIX 100 ML IV SCH ×4 (06:09→23:22)
[2016-09-09] MEDS: MORPHINE SULFATE 4 MG/ML INJ IV PUSH PRN ×5 (06:09→21:37)
[2016-09-09 08:00] VITALS: BP 114/76; PULSE 64; RESP 16; TEMP 97.6; O2SAT 96
[2016-09-09] MEDS: SODIUM CHLOR 0.9% 1000 ML INJ 1,000 ML IV SCH (08:31)
[2016-09-09] MEDS: SODIUM CHLORIDE 0.9% FLUSH 10 ML FLUSH IV FLUSH SCH ×2 (08:31→20:04)
[2016-09-09] MEDS: DOCUSATE SODIUM 50 MG/SENNA 8.6 MG TAB PO SCH ×2 (08:32→20:08)
[2016-09-09] MEDS: NICOTINE 14 MG/24 HR PATCH T-DERMAL SCH (08:36)
[2016-09-09] MEDS: METHADONE HCL 10 MG TAB PO SCH ×2 (08:36→20:05)
[2016-09-09] MEDS: ENOXAPARIN SODIUM 40 MG/0.4 ML SYRINGE SQ SCH (08:37)
[2016-09-09] MEDS ORDERED: DOCUSATE SODIUM 100 MG CAP PO SCH (09:00)
--- NOTE | 2016-09-09 09:03 | HHI.PR ---
Subjective Remarks f/u back pain patient stated that he was able to fall asleep for this first time this morning. he stated pain has improved. patient also stated methadone worked better. remains afebrile. patient admits to having anxiety, bipolar, depression, ADHD but he stated he does not want to be on medication. his nurse is at bedside patient also stated that when he eats back pain worsens. This has been happening for about 6 months. denied any abdominal pain, N/V. Objective Vitals Vital Signs Date Time Temp Pulse Resp B/P Pulse Ox O2 Delivery O2 Flow Rate FiO2 09/09/16 00:00 98.5 76 20 118/74 97 09/08/16 20:00 98.0 75 20 117/68 96 09/08/16 16:34 18 09/08/16 16:00 98.3 68 16 137/93 99 09/08/16 12:00 97.8 70 18 128/82 98 I/O 09/08/16 09/08/16 09/08/16 09/09/16 09/09/16 09/09/16 07:00 15:00 23:00 07:00 15:00 23:00 Intake Total 480 ml 1550 ml 240 ml 490 ml Output Total 800 ml 1550 ml 1100 ml 450 ml Balance -320 ml 0 ml -860 ml 40 ml Intake Oral 480 ml 600 ml 240 ml 240 ml IV Total 950 ml 0 ml 250 ml Output Urine Total 800 ml 1550 ml 1100 ml 450 ml # Bowel Movements 0 0 0 0 Result Diagram: 09/07/16 1140 09/07/16 1140 Objective Remarks GENERAL: in NAD CARDIOVASCULAR: Regular rate and rhythm without murmurs, gallops, or rubs. RESPIRATORY: Breath sounds equal bilaterally. No accessory muscle use. GASTROINTESTINAL: Abdomen soft, non-tender, nondistended. MUSCULOSKELETAL: No cyanosis, or edema. + TTP of mid to lower back that has improved. Medications and IVs Current Medications Sodium Chloride 2 ml 2 ml UNSCH PRN IVF FLUSH AFTER USING IV ACCESS; Start at 11:15; Stop 09/07/16 at 11:15; Status DC Sodium Chloride 1,000 ml @ 1,000 mls/hr Q1H ONCE IV Last administered on t 12:02; Start 09/07/16 at 11:21; Stop 09/07/16 at 12:20; Status DC Sodium Chloride 1,000 ml @ 1,000 mls/hr Q1H ONCE IV Last administered on 12:02; Start 09/07/16 at 11:21; Stop 09/07/16 at 12:20; Status DC Sodium Chloride (NS 1000 ml Inj) 100 ml @ 1,000 mls/hr Q6M ONCE IV ; Start at 11:21; Stop 09/07/16 at 11:26; Status DC Ketorolac Tromethamine (Toradol Inj) 30 mg ONCE ONCE IV PUSH Last administered on 09/07/16 12:03; Start 09/07/16 at 11:30; Stop 09/07/16 at 11:31 ; Status DC Morphine Sulfate (Morphine Inj) 4 mg ONCE ONCE IV PUSH Last administered on 12:02; Start 09/07/16 at 11:30; Stop 09/07/16 at 11:31; Status DC Iohexol (Omnipaque 350 Inj) 93 ml STK-MED ONCE IV Last administered on 13:01; Start 09/07/16 at 13:01; Stop 09/07/16 at 13:02; Status DC Lorazepam (Ativan) 1 mg ONCE ONCE PO Last administered on 09/07/16 14:44; Start 09/07/16 at 14:30; Stop 09/07/16 at 14:33; Status DC Gadodiamide 13 ml 13 ml STK-MED ONCE IV Last administered on 09/07/16 15:40; Start 09/07/16 at 15:40; Stop 09/07/16 at 15:41; Status DC Piperacillin Sod/ Tazobactam Sod 100 ml @ 200 mls/hr ONCE ONCE IV Last administered on 09/07/16 18:39; Start 09/07/16 at 16:45; Stop 09/07/16 at 17:14 ; Status DC Vancomycin HCl 1000 mg/Sodium Chloride 250 ml @ 250 mls/hr ONCE ONCE IV Last administered on 09/07/16 19:28; Start 09/07/16 at 16:45; Stop 09/07/16 at 17:44 ; Status DC Sodium Chloride (NS 1000 ml Inj) 1,000 ml @ 100 mls/hr Q10H IV Last administered on 09/08/16 04:05; Start 09/07/16 at 18:00 Sodium Chloride (NS Flush) 2 ml UNSCH PRN IV FLUSH FLUSH AFTER USING IV ACCESS Last administered on 09/08/16 05:21; Start 09/07/16 at 17:45 Sodium Chloride (NS Flush) 2 ml BID IV FLUSH Last administered on 09/09/16 08: 31; Start 09/07/16 at 21:00 Ondansetron HCl (Zofran Inj) 4 mg Q6H PRN IVP NAUSEA OR VOMITING; Start at 17:45 Enoxaparin Sodium (Lovenox Inj) 40 mg Q24H SQ ; Start 09/07/16 at 17:45; Stop at 17:45; Status DC Naloxone HCl (Narcan Inj) 0.4 mg UNSCH PRN IV SEE LABEL COMMENTS; Start at 17:45 Senna/Docusate Sodium (Simona-Colace) 1 tab BID PO Last administered on 22:10; Start 09/07/16 at 21:00 Magnesium Hydroxide (Milk Of Magnesia Liq) 30 ml Q12H PRN PO MILD - MODERATE CONSTIPATION; Start 09/07/16 at 17:45 Sennosides (Senokot) 17.2 mg Q12H PRN PO MODERATE - SEVERE CONSTIPATION; Start 09/07/16 at 17:45 Bisacodyl (Dulcolax Supp) 10 mg DAILY PRN RECTAL SEVERE CONSITIPATION; Start at 17:45 Lactulose (Lactulose Liq) 30 ml DAILY PRN PO SEVERE CONSITIPATION; Start at 17:45 Nicotine (Habitrol 14 Mg Patch.24 Hr) 1 patch DAILY T-DERMAL Last administered on 09/09/16 08:36; Start 09/07/16 at 17:45 Miscellaneous Information 1 HS T-DERMAL Last administered on 09/08/16 20:37; Start 09/07/16 at 21:00 Midazolam HCl (Versed Inj) 5 mg STK-MED ONCE .ROUTE Last administered on 17:50; Start 09/07/16 at 17:50; Stop 09/07/16 at 17:51; Status DC Fentanyl Citrate (fentaNYL INJ) 250 mcg STK-MED ONCE .ROUTE Last administered on 09/07/16 17:50; Start 09/07/16 at 17:50; Stop 09/07/16 at 17:51; Status DC Oxycodone HCl (Roxicodone) 5 mg Q4H PRN PO pain 1-7; Start 09/07/16 at 18:00 Oxycodone HCl (Roxicodone) 10 mg Q4H PRN PO pain 8-10 Last administered on 09/09 02:22; Start 09/07/16 at 18:00 Morphine Sulfate 2 mg 2 mg Q3H PRN IV PUSH pain 1-10 Last administered on 06:09; Start 09/07/16 at 18:00 Vancomycin HCl 1000 mg/Sodium Chloride 250 ml @ 250 mls/hr Q12H IV ; Start at 10:00; Stop 09/08/16 at 10:00; Status DC Pharmacy Profile Note 0 ml @ 0 mls/hr UNSCH OTHER ; Start 09/08/16 at 09:15; Stop 09/08/16 at 21:49; Status DC Piperacillin Sod/ Tazobactam Sod (Zosyn 3.375 Gm Premix) 50 ml @ 100 mls/hr Q6H IV Last administered on 09/08/16 16:29; Start 09/08/16 at 10:00; Stop at 21:49; Status DC Ferrous Sulfate (Ferrous Sulfate) 325 mg BID@12,17 PO Last administered on 09/08 16:29; Start 09/08/16 at 12:00 Enoxaparin Sodium 40 mg 40 mg Q24H SQ Last administered on 09/09/16 08:37; Start 09/08/16 at 10:00 Vancomycin HCl/ Sodium Chloride (Vancomycin Inj/ NS 250 ml Inj) 250 ml @ 250 mls/hr Q12H IV Last administered on 09/08/16 10:32; Start 09/08/16 at 11:00; Stop 09/08/16 at 21:50; Status DC Miscellaneous Information SPECIFIC LAB TO BE KANU... ONCE ONCE .XX ; Start 09/09 at 22:45; Stop 09/09/16 at 22:46; Status Cancel Miscellaneous Information SPECIFIC LAB TO BE .. ONCE ONCE .XX ; Start 09/09 at 22:45; Stop 09/09/16 at 22:46; Status Cancel Methadone HCl 10 mg 10 mg Q12HR PO Last administered on 09/09/16 08:36; Start 09/08/16 at 14:30 Piperacillin Sod/ Tazobactam Sod 100 ml @ 200 mls/hr Q6H IV Last administered on 09/09/16 06:09; Start 09/08/16 at 23:00 Levofloxacin/ Dextrose (Levaquin 750 Mg Premix Inj) 150 ml @ 100 mls/hr Q24H IV Last administered on 09/08/16 22:01; Start 09/08/16 at 22:00 A/P Assessment and Plan Intractable lower back pain in a patient with history of IV drug use -MRI of the cervical and thoracic spine showed T11-12 discitis with diffuse enhancement of the T11 and T12 vertebral bodies characteristic of osteomyelitis. Paraspinal inflammatory tissue. Deformity of the C6 and C7 vertebral bodies with collapse of the disc and suspected partial ankylosis. -s/p bone aspiration on 09/07/16 by IR. -patient initially on Zosyn and vancomycin but aspiration growing gram neg rods. ID on board. vancomycin d/c on 09/08 and started on levaquin. zosyn continued. -pain better controlled with methadone but still uncontrolled. increase methadone to 20 mg PO BID. add toradol. T11 to 12 discitis / osteomyelitis -See treatment as above. History of IV drug use -Patient stated that he stopped any IV drug use 2 years ago. Opioid dependence -Patient stopped methadone 2 weeks ago. He was being seen in methadone clinic. Tobacco dependence -Smoking cessation. -on Nicotine patch. History of iron deficiency anemia -Patient hemoglobin is normal. Despite this he requests that he continues his iron. continue with iron. anxiety/bipolar/depression/ADHD -patient no on medication. DVT prophylaxis -SCDs. on lovenox. Discharge Planning patient will need terminologist antibiotics pending results of aspiration. Yaquelin Aguilar MD Sep 09, 2016 09:03
[2016-09-09] MEDS: FERROUS SULFATE 325 MG (65 MG ELEMENTAL IRON) TAB PO SCH ×2 (10:34→17:11)
[2016-09-09 12:00] VITALS: BP 104/68; PULSE 66; RESP 16; TEMP 97.7; O2SAT 97
[2016-09-09] MEDS: KETOROLAC TROMETHAMINE 30 MG/ML (IVP) VIAL IV PUSH SCH ×2 (12:34→20:04)
--- NOTE | 2016-09-09 12:54 | HHI.IDPN ---
Subjective Subjective Remarks not much change since yday still requires ambulation with walker 2/2 pain no numbness, no weakness, no incontinence blood clx remain negative Growing Serratia from the disk clx cole S co back pain with swallowing Antibiotics zosyn levaquine Allergies: Coded Allergies: Ceclor (Verified Adverse Reaction, Intermediate, RASH AND HIVES, 09/07/16) Uncoded Allergies: CYCLORE (Allergy, Unknown, 03/15/09) Objective . Vital Signs Date Time Temp Pulse Resp B/P Pulse Ox O2 Delivery O2 Flow Rate FiO2 09/09/16 12:00 97.7 66 16 104/68 97 09/09/16 08:00 97.6 64 16 114/76 96 09/09/16 00:00 98.5 76 20 118/74 97 09/08/16 20:00 98.0 75 20 117/68 96 09/08/16 16:34 18 09/08/16 16:00 98.3 68 16 137/93 99 09/08/16 09/08/16 09/09/16 15:00 23:00 07:00 Intake Total 1550 ml 240 ml 490 ml Output Total 1550 ml 1100 ml 450 ml Balance 0 ml -860 ml 40 ml Intake Oral 600 ml 240 ml 240 ml IV Total 950 ml 0 ml 250 ml Output Urine Total 1550 ml 1100 ml 450 ml # Bowel Movements 0 0 0 . Microbiology Date/Time Procedure Status Source Growth 09/07/16 11:30 Aerobic Blood Culture - Preliminary Resulted Blood Peripheral NO GROWTH IN 2 DAYS 09/07/16 11:30 Anaerobic Blood Culture - Preliminary Resulted Blood Peripheral NO GROWTH IN 2 DAYS 09/07/16 11:45 Aerobic Blood Culture - Preliminary Resulted Blood Peripheral NO GROWTH IN 2 DAYS 09/07/16 11:45 Anaerobic Blood Culture - Preliminary Resulted Blood Peripheral NO GROWTH IN 2 DAYS 09/07/16 18:17 Gram Stain - Final Complete Wound Bone 09/07/16 18:17 Wound Culture - Final Complete Serratia Marcescens Imaging Last Impressions Chest X-Ray 09/07/16 1121 Signed Impressions: Service Date/Time: August 12:26 - CONCLUSION: 1. No acute cardiopulmonary findings. Stable compared to previous dated 03/15/09. Audi Sarmiento MD Thoracic Spine MRI 09/07/16 0000 Signed Impressions: Service Date/Time: August 15:08 - CONCLUSION: T11-12 discitis with diffuse enhancement of the T11 and T12 vertebral bodies characteristic of osteomyelitis. Paraspinal inflammatory tissue. No evidence of epidural abscess or myelitis. Farhat Johnson MD Needle Biopsy/Aspiration X-Ray 09/07/16 0000 Signed Impressions: Service Date/Time: August 18:08 - CONCLUSION: Uncomplicated needle biopsy of the T11/T12 disc space as above. Audi Sarmiento MD Cervical Spine MRI 09/07/16 0000 Signed Impressions: Service Date/Time: August 15:08 - CONCLUSION: Deformity of the C6 and C7 vertebral bodies with collapse of the disc and suspected partial ankylosis. There is mild enhancement along fused endplates and anterior epidural soft tissue which may represent scar tissue. These findings are most characteristic of either posttraumatic or postinflammatory disease. No significant active inflammatory disease is suspected. There is no evidence of epidural or paraspinal abscess or abnormal spinal cord enhancement. No acute bony abnormality or disc herniation. Farhat Johnson MD Abdomen/Pelvis CT 09/07/16 0000 Signed Impressions: Service Date/Time: August 12:48 - CONCLUSION: 1. Mild splenomegaly. 2. Disc space narrowing at T11-12 as well as sclerosis surrounding this disc level. MRI of the thoracic spine with contrast may be helpful for further evaluation if clinically indicated. Yonatan Cruz MD Physical Exam CONSTITUTIONAL/GENERAL: This is an adequately nourished patient, in no apparent distress. TUBES/LINES/DRAINS: SKIN: No jaundice, rashes, or lesions. OLd well healed scars LUE Skin temperature appropriate. Not diaphoretic. EYES: Extraocular motions intact. No scleral icterus. No injection or drainage. Fundi not examined. CARDIOVASCULAR: Regular rate and rhythm without murmurs, gallops, or rubs. No JVD. Peripheral pulses symmetric. RESPIRATORY/CHEST: Symmetric, unlabored respirations. Clear to auscultation. Breath sounds equal bilaterally. No wheezes, rales, or rhonchi. GASTROINTESTINAL: Abdomen soft, non-tender, nondistended. No hepato-splenomegaly , or palpable masses. Bowel sounds present. MUSCULOSKELETAL: Extremities without clubbing, cyanosis, or edema. NEUROLOGICAL: Awake and alert. Motor and sensory grossly within normal limits. Follows commands. Clear speech. Moves all extremities with 5/5 strengh PSYCHIATRIC: No obvious anxiety/depression. no apparent hallucinations or other psychotic thought process. Assessment & Plan Remarks Assessment and Plan T11 and T12 vertebral osteomyelitis, Serratia ? PSAE aw IVDU - cont zosyn for now - cont levaquin - consult neuro surgery Dr Domingo Discussed Condition With pt Yaneth Garcia,Sumi Parsons MD Sep 09, 2016 12:54
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
[2016-09-09 16:00] VITALS: BP 118/68; PULSE 60; RESP 18; TEMP 97; O2SAT 97
[2016-09-09 20:00] VITALS: BP 131/86; PULSE 67; RESP 17; TEMP 97.2; O2SAT 98
[2016-09-09] MEDS: REMOVE OLD PATCH T-DERMAL SCH (20:05)
[2016-09-09] MEDS: LEVOFLOXACIN 750 MG PREMIX INJ 150 ML IV SCH (20:05)
[2016-09-09] MEDS ORDERED: PHARMACY ORDERED LAB ONE ×2 (22:45)
[2016-09-10] VITALS: BP 134/71; PULSE 75; RESP 17; TEMP 98.3; O2SAT 98
[2016-09-10] MEDS: KETOROLAC TROMETHAMINE 30 MG/ML (IVP) VIAL IV PUSH SCH ×3 (03:46→18:48)
[2016-09-10] MEDS: PIPERACIL-TAZO 4.5 GM PREMIX 100 ML IV SCH ×4 (05:19→22:19)
[2016-09-10] MEDS: NICOTINE 14 MG/24 HR PATCH T-DERMAL SCH (07:51)
[2016-09-10] MEDS: SODIUM CHLORIDE 0.9% FLUSH 10 ML FLUSH IV FLUSH SCH ×2 (07:51→20:54)
[2016-09-10] MEDS: DOCUSATE SODIUM 50 MG/SENNA 8.6 MG TAB PO SCH ×2 (07:52→20:53)
[2016-09-10 08:00] VITALS: BP 124/71; PULSE 61; RESP 18; TEMP 95.5; O2SAT 98
[2016-09-10] MEDS: MORPHINE SULFATE 4 MG/ML INJ IV PUSH PRN ×2 (08:49→19:30)
[2016-09-10] MEDS: ENOXAPARIN SODIUM 40 MG/0.4 ML SYRINGE SQ SCH (08:51)
[2016-09-10] MEDS: METHADONE HCL 10 MG TAB PO SCH ×2 (08:52→20:54)
--- NOTE | 2016-09-10 09:17 | HHI.PR ---
Subjective Remarks Follow-up for discitis/osteomyelitis Patient is very anxious today. He stated that anytime he has liquids his back pain is exacerbated. Patient stated Roxicodone isn't helping yet. He is asking for dose morphine. Patient also asking for Lidoderm patch. He stated otherwise he does not want to change regimen. He stated that Toradol is helping. Objective Vitals Vital Signs Date Time Temp Pulse Resp B/P Pulse Ox O2 Delivery O2 Flow Rate FiO2 09/10/16 08:00 95.5 61 18 124/71 98 09/10/16 05:09 18 09/10/16 05:09 18 09/10/16 00:00 98.3 75 17 134/71 98 09/09/16 21:40 18 09/09/16 21:40 18 09/09/16 20:00 97.2 67 17 131/86 98 09/09/16 16:00 97.0 60 18 118/68 97 09/09/16 12:00 97.7 66 16 104/68 97 I/O 09/09/16 09/09/16 09/09/16 09/10/16 09/10/16 09/10/16 07:00 15:00 23:00 07:00 15:00 23:00 Intake Total 490 ml 200 ml 855 ml 345 ml Output Total 450 ml 800 ml 300 ml Balance 40 ml 200 ml 55 ml 45 ml Intake Oral 240 ml 600 ml 240 ml IV Total 250 ml 200 ml 255 ml 105 ml Output Urine Total 450 ml 800 ml 300 ml # Voids 3 # Bowel Movements 0 Result Diagram: 09/07/16 1140 09/07/16 1140 Objective Remarks GENERAL: in NAD CARDIOVASCULAR: Regular rate and rhythm without murmurs, gallops, or rubs. RESPIRATORY: Breath sounds equal bilaterally. No accessory muscle use. GASTROINTESTINAL: Abdomen soft, non-tender, nondistended. MUSCULOSKELETAL: No cyanosis, or edema. + TTP of mid to lower back that has improved. Medications and IVs Current Medications Sodium Chloride 2 ml 2 ml UNSCH PRN IVF FLUSH AFTER USING IV ACCESS; Start at 11:15; Stop 09/07/16 at 11:15; Status DC Sodium Chloride 1,000 ml @ 1,000 mls/hr Q1H ONCE IV Last administered on t 12:02; Start 09/07/16 at 11:21; Stop 09/07/16 at 12:20; Status DC Sodium Chloride 1,000 ml @ 1,000 mls/hr Q1H ONCE IV Last administered on 12:02; Start 09/07/16 at 11:21; Stop 09/07/16 at 12:20; Status DC Sodium Chloride (NS 1000 ml Inj) 100 ml @ 1,000 mls/hr Q6M ONCE IV ; Start at 11:21; Stop 09/07/16 at 11:26; Status DC Ketorolac Tromethamine (Toradol Inj) 30 mg ONCE ONCE IV PUSH Last administered on 09/07/16 12:03; Start 09/07/16 at 11:30; Stop 09/07/16 at 11:31 ; Status DC Morphine Sulfate (Morphine Inj) 4 mg ONCE ONCE IV PUSH Last administered on 12:02; Start 09/07/16 at 11:30; Stop 09/07/16 at 11:31; Status DC Iohexol (Omnipaque 350 Inj) 93 ml STK-MED ONCE IV Last administered on 13:01; Start 09/07/16 at 13:01; Stop 09/07/16 at 13:02; Status DC Lorazepam (Ativan) 1 mg ONCE ONCE PO Last administered on 09/07/16 14:44; Start 09/07/16 at 14:30; Stop 09/07/16 at 14:33; Status DC Gadodiamide 13 ml 13 ml STK-MED ONCE IV Last administered on 09/07/16 15:40; Start 09/07/16 at 15:40; Stop 09/07/16 at 15:41; Status DC Piperacillin Sod/ Tazobactam Sod 100 ml @ 200 mls/hr ONCE ONCE IV Last administered on 09/07/16 18:39; Start 09/07/16 at 16:45; Stop 09/07/16 at 17:14 ; Status DC Vancomycin HCl 1000 mg/Sodium Chloride 250 ml @ 250 mls/hr ONCE ONCE IV Last administered on 09/07/16 19:28; Start 09/07/16 at 16:45; Stop 09/07/16 at 17:44 ; Status DC Sodium Chloride (NS 1000 ml Inj) 1,000 ml @ 100 mls/hr Q10H IV Last administered on 09/08/16 04:05; Start 09/07/16 at 18:00; Stop 09/09/16 at 16:47 ; Status DC Sodium Chloride (NS Flush) 2 ml UNSCH PRN IV FLUSH FLUSH AFTER USING IV ACCESS Last administered on 09/08/16 05:21; Start 09/07/16 at 17:45 Sodium Chloride (NS Flush) 2 ml BID IV FLUSH Last administered on 09/10/16 07: 51; Start 09/07/16 at 21:00 Ondansetron HCl (Zofran Inj) 4 mg Q6H PRN IVP NAUSEA OR VOMITING; Start at 17:45 Enoxaparin Sodium (Lovenox Inj) 40 mg Q24H SQ ; Start 09/07/16 at 17:45; Stop at 17:45; Status DC Naloxone HCl (Narcan Inj) 0.4 mg UNSCH PRN IV SEE LABEL COMMENTS; Start at 17:45 Senna/Docusate Sodium (Simona-Colace) 1 tab BID PO Last administered on 22:10; Start 09/07/16 at 21:00 Magnesium Hydroxide (Milk Of Magnesia Liq) 30 ml Q12H PRN PO MILD - MODERATE CONSTIPATION; Start 09/07/16 at 17:45 Sennosides (Senokot) 17.2 mg Q12H PRN PO MODERATE - SEVERE CONSTIPATION; Start 09/07/16 at 17:45 Bisacodyl (Dulcolax Supp) 10 mg DAILY PRN RECTAL SEVERE CONSITIPATION; Start at 17:45 Lactulose (Lactulose Liq) 30 ml DAILY PRN PO SEVERE CONSITIPATION; Start at 17:45 Nicotine (Habitrol 14 Mg Patch.24 Hr) 1 patch DAILY T-DERMAL Last administered on 09/10/16 07:51; Start 09/07/16 at 17:45 Miscellaneous Information 1 HS T-DERMAL Last administered on 09/09/16 20:05; Start 09/07/16 at 21:00 Midazolam HCl (Versed Inj) 5 mg STK-MED ONCE .ROUTE Last administered on 17:50; Start 09/07/16 at 17:50; Stop 09/07/16 at 17:51; Status DC Fentanyl Citrate (fentaNYL INJ) 250 mcg STK-MED ONCE .ROUTE Last administered on 09/07/16 17:50; Start 09/07/16 at 17:50; Stop 09/07/16 at 17:51; Status DC Oxycodone HCl (Roxicodone) 5 mg Q4H PRN PO pain 1-7; Start 09/07/16 at 18:00 Oxycodone HCl (Roxicodone) 10 mg Q4H PRN PO pain 8-10 Last administered on 09/10 07:51; Start 09/07/16 at 18:00 Morphine Sulfate 2 mg 2 mg Q3H PRN IV PUSH pain 1-10 Last administered on 21:37; Start 09/07/16 at 18:00; Stop 09/10/16 at 08:39; Status DC Vancomycin HCl 1000 mg/Sodium Chloride 250 ml @ 250 mls/hr Q12H IV ; Start at 10:00; Stop 09/08/16 at 10:00; Status DC Pharmacy Profile Note 0 ml @ 0 mls/hr UNSCH OTHER ; Start 09/08/16 at 09:15; Stop 09/08/16 at 21:49; Status DC Piperacillin Sod/ Tazobactam Sod (Zosyn 3.375 Gm Premix) 50 ml @ 100 mls/hr Q6H IV Last administered on 09/08/16 16:29; Start 09/08/16 at 10:00; Stop at 21:49; Status DC Ferrous Sulfate (Ferrous Sulfate) 325 mg BID@12,17 PO Last administered on 09/09 17:11; Start 09/08/16 at 12:00 Enoxaparin Sodium 40 mg 40 mg Q24H SQ Last administered on 09/10/16 08:51; Start 09/08/16 at 10:00 Vancomycin HCl/ Sodium Chloride (Vancomycin Inj/ NS 250 ml Inj) 250 ml @ 250 mls/hr Q12H IV Last administered on 09/08/16 10:32; Start 09/08/16 at 11:00; Stop 09/08/16 at 21:50; Status DC Miscellaneous Information SPECIFIC LAB TO BE KANU... ONCE ONCE .XX ; Start 09/09 at 22:45; Stop 09/09/16 at 22:46; Status Cancel Miscellaneous Information SPECIFIC LAB TO BE KANU... ONCE ONCE .XX ; Start 09/09 at 22:45; Stop 09/09/16 at 22:46; Status Cancel Methadone HCl 10 mg 10 mg Q12HR PO Last administered on 09/09/16 08:36; Start 09/08/16 at 14:30; Stop 09/09/16 at 08:56; Status DC Piperacillin Sod/ Tazobactam Sod 100 ml @ 200 mls/hr Q6H IV Last administered on 09/10/16 05:19; Start 09/08/16 at 23:00 Levofloxacin/ Dextrose (Levaquin 750 Mg Premix Inj) 150 ml @ 100 mls/hr Q24H IV Last administered on 09/09/16 20:05; Start 09/08/16 at 22:00 Methadone HCl (Dolophine) 20 mg Q12HR PO Last administered on 09/10/16 08:52; Start 09/09/16 at 21:00 Ketorolac Tromethamine (Toradol Inj) 15 mg Q8H IV PUSH Last administered on 03:46; Start 09/09/16 at 11:00; Stop 09/14/16 at 10:59 Docusate Sodium (Colace) 100 mg BID PO ; Start 09/09/16 at 09:00; Status UNV Morphine Sulfate (Morphine Inj) 1 mg Q3H PRN IV PUSH PAIN SCALE 1 TO 10 Last administered on 09/10/16 08:49; Start 09/10/16 at 09:00 Lidocaine HCl (Lidoderm 5% Patch.12 Hr) 1 patch DAILY T-DERMAL ; Start 09/10/16 at 10:00 Miscellaneous Information 1 DAILY T-DERMAL ; Start 09/10/16 at 10:00 A/P Assessment and Plan Acute-subacute appearing T11-12 discitis-osteomyelitis. Remote appearing C6-7 discitis-osteomyelitis. -MRI of the cervical and thoracic spine showed T11-12 discitis with diffuse enhancement of the T11 and T12 vertebral bodies characteristic of osteomyelitis. Paraspinal inflammatory tissue. Deformity of the C6 and C7 vertebral bodies with collapse of the disc and suspected partial ankylosis. -s/p bone aspiration on 09/07/16 by IR. -patient initially on Zosyn and vancomycin but aspiration growing Serratia. ID on board. vancomycin d/c on 09/08. On Levaquin and Zosyn. -Continue with current dose of methadone and Toradol. Roxycodone or morphine for breakthrough pain. We will also add Lidoderm patch. -Neurosurgeon consulted by Dr. Zimmer. Per neurosurgeon no surgical intervention at the moment. Recommend T11-12 CT-guided biopsy if needed for diagnosis, check follow-up thoracic spine x-ray in approximately 10-14 days, and TLSO brace -Will order TLSO brace and continue her current regimen. History of IV drug use -Patient stated that he stopped any IV drug use 2 years ago. Opioid dependence -Patient stopped methadone 2 weeks ago. He was being seen in methadone clinic. Tobacco dependence -Smoking cessation. -on Nicotine patch. History of iron deficiency anemia -Patient hemoglobin is normal. Despite this he requests that he continues his iron. continue with iron. anxiety/bipolar/depression/ADHD -patient no on medication. DVT prophylaxis -SCDs. on lovenox. Discharge Planning patient will need [employer] antibiotics pending results of aspiration. Yaquelin Aguilar MD Sep 10, 2016 09:17
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
[2016-09-10] MEDS: REMOVE OLD LIDOCAINE PATCH T-DERMAL SCH (10:00)
[2016-09-10] MEDS: LIDOCAINE HCL 5% PATCH T-DERMAL SCH (10:33)
[2016-09-10 12:00] VITALS: BP 113/67; PULSE 59; RESP 18; TEMP 96.5; O2SAT 96
[2016-09-10] MEDS: FERROUS SULFATE 325 MG (65 MG ELEMENTAL IRON) TAB PO SCH ×2 (12:25→17:18)
[2016-09-10 15:53] LABS: POTASSIUM 4.6 MEQ/L (3.5-5.1)
[2016-09-10 16:00] VITALS: BP 121/76; PULSE 62; RESP 16; TEMP 96.5; O2SAT 99
[2016-09-10] MEDS: LEVOFLOXACIN 750 MG PREMIX INJ 150 ML IV SCH (20:54)
[2016-09-10] MEDS: REMOVE OLD PATCH T-DERMAL SCH (20:56)
[2016-09-10 21:12] LABS: MEAN CORPUSCULAR HGB CONC 26.3 % (32.0-36.0)
[2016-09-11] VITALS: BP 121/83; PULSE 67; RESP 17; TEMP 96.1; O2SAT 97
[2016-09-11] MEDS: KETOROLAC TROMETHAMINE 30 MG/ML (IVP) VIAL IV PUSH SCH ×3 (03:03→18:23)
[2016-09-11] MEDS: PIPERACIL-TAZO 4.5 GM PREMIX 100 ML IV SCH ×4 (04:42→23:05)
[2016-09-11 07:45] VITALS: BP 113/81; PULSE 60; RESP 20; TEMP 97.7; O2SAT 97
[2016-09-11] MEDS: REMOVE OLD LIDOCAINE PATCH T-DERMAL SCH (09:00)
[2016-09-11] MEDS: DOCUSATE SODIUM 50 MG/SENNA 8.6 MG TAB PO SCH ×2 (09:00→20:38)
--- NOTE | 2016-09-11 09:20 | HHI.PR ---
Subjective Remarks Follow-up for discitis/osteomyelitis Patient stated that pain has improved. He stated that her pains improved more with ambulation with TLSO. He stated that he has been ambulating a lot more yesterday. Patient stated that he still has increased back pain with oral intake. Deny any abdominal pain. Denies any nausea/ vomiting. No other complaints. Objective Vitals Vital Signs Date Time Temp Pulse Resp B/P Pulse Ox O2 Delivery O2 Flow Rate FiO2 09/11/16 07:45 97.7 60 20 113/81 97 09/11/16 04:33 17 09/11/16 00:00 96.1 67 17 121/83 97 09/10/16 21:54 18 09/10/16 19:48 18 09/10/16 19:48 18 09/10/16 16:00 96.5 62 16 121/76 99 09/10/16 12:00 96.5 59 18 113/67 96 I/O 09/10/16 09/10/16 09/10/16 09/11/16 09/11/16 09/11/16 07:00 15:00 23:00 07:00 15:00 23:00 Intake Total 345 ml 560 ml 340 ml 590 ml 120 ml Output Total 300 ml 200 ml Balance 45 ml 560 ml 140 ml 590 ml 120 ml Intake Oral 240 ml 360 ml 240 ml 240 ml 120 ml IV Total 105 ml 200 ml 100 ml 350 ml Output Urine Total 300 ml 200 ml # Voids 2 Result Diagram: 09/07/16 1140 09/10/16 1439 Objective Remarks GENERAL: in NAD CARDIOVASCULAR: Regular rate and rhythm without murmurs, gallops, or rubs. RESPIRATORY: Breath sounds equal bilaterally. No accessory muscle use. GASTROINTESTINAL: Abdomen soft, non-tender, nondistended. MUSCULOSKELETAL: No cyanosis, or edema. + TTP of mid to lower back that has improved. Medications and IVs Current Medications Sodium Chloride 2 ml 2 ml UNSCH PRN IVF FLUSH AFTER USING IV ACCESS; Start at 11:15; Stop 09/07/16 at 11:15; Status DC Sodium Chloride 1,000 ml @ 1,000 mls/hr Q1H ONCE IV Last administered on t 12:02; Start 09/07/16 at 11:21; Stop 09/07/16 at 12:20; Status DC Sodium Chloride 1,000 ml @ 1,000 mls/hr Q1H ONCE IV Last administered on 12:02; Start 09/07/16 at 11:21; Stop 09/07/16 at 12:20; Status DC Sodium Chloride (NS 1000 ml Inj) 100 ml @ 1,000 mls/hr Q6M ONCE IV ; Start at 11:21; Stop 09/07/16 at 11:26; Status DC Ketorolac Tromethamine (Toradol Inj) 30 mg ONCE ONCE IV PUSH Last administered on 09/07/16 12:03; Start 09/07/16 at 11:30; Stop 09/07/16 at 11:31 ; Status DC Morphine Sulfate (Morphine Inj) 4 mg ONCE ONCE IV PUSH Last administered on 12:02; Start 09/07/16 at 11:30; Stop 09/07/16 at 11:31; Status DC Iohexol (Omnipaque 350 Inj) 93 ml STK-MED ONCE IV Last administered on 13:01; Start 09/07/16 at 13:01; Stop 09/07/16 at 13:02; Status DC Lorazepam (Ativan) 1 mg ONCE ONCE PO Last administered on 09/07/16 14:44; Start 09/07/16 at 14:30; Stop 09/07/16 at 14:33; Status DC Gadodiamide 13 ml 13 ml STK-MED ONCE IV Last administered on 09/07/16 15:40; Start 09/07/16 at 15:40; Stop 09/07/16 at 15:41; Status DC Piperacillin Sod/ Tazobactam Sod 100 ml @ 200 mls/hr ONCE ONCE IV Last administered on 09/07/16 18:39; Start 09/07/16 at 16:45; Stop 09/07/16 at 17:14 ; Status DC Vancomycin HCl 1000 mg/Sodium Chloride 250 ml @ 250 mls/hr ONCE ONCE IV Last administered on 09/07/16 19:28; Start 09/07/16 at 16:45; Stop 09/07/16 at 17:44 ; Status DC Sodium Chloride (NS 1000 ml Inj) 1,000 ml @ 100 mls/hr Q10H IV Last administered on 09/08/16 04:05; Start 09/07/16 at 18:00; Stop 09/09/16 at 16:47 ; Status DC Sodium Chloride (NS Flush) 2 ml UNSCH PRN IV FLUSH FLUSH AFTER USING IV ACCESS Last administered on 09/08/16 05:21; Start 09/07/16 at 17:45 Sodium Chloride (NS Flush) 2 ml BID IV FLUSH Last administered on 09/10/16 20: 54; Start 09/07/16 at 21:00 Ondansetron HCl (Zofran Inj) 4 mg Q6H PRN IVP NAUSEA OR VOMITING; Start at 17:45 Enoxaparin Sodium (Lovenox Inj) 40 mg Q24H SQ ; Start 09/07/16 at 17:45; Stop at 17:45; Status DC Naloxone HCl (Narcan Inj) 0.4 mg UNSCH PRN IV SEE LABEL COMMENTS; Start at 17:45 Senna/Docusate Sodium (Simona-Colace) 1 tab BID PO Last administered on 22:10; Start 09/07/16 at 21:00 Magnesium Hydroxide (Milk Of Magnesia Liq) 30 ml Q12H PRN PO MILD - MODERATE CONSTIPATION; Start 09/07/16 at 17:45 Sennosides (Senokot) 17.2 mg Q12H PRN PO MODERATE - SEVERE CONSTIPATION; Start 09/07/16 at 17:45 Bisacodyl (Dulcolax Supp) 10 mg DAILY PRN RECTAL SEVERE CONSITIPATION; Start at 17:45 Lactulose (Lactulose Liq) 30 ml DAILY PRN PO SEVERE CONSITIPATION; Start at 17:45 Nicotine (Habitrol 14 Mg Patch.24 Hr) 1 patch DAILY T-DERMAL Last administered on 09/10/16 07:51; Start 09/07/16 at 17:45 Miscellaneous Information 1 HS T-DERMAL Last administered on 09/10/16 20:56; Start 09/07/16 at 21:00 Midazolam HCl (Versed Inj) 5 mg STK-MED ONCE .ROUTE Last administered on 17:50; Start 09/07/16 at 17:50; Stop 09/07/16 at 17:51; Status DC Fentanyl Citrate (fentaNYL INJ) 250 mcg STK-MED ONCE .ROUTE Last administered on 09/07/16 17:50; Start 09/07/16 at 17:50; Stop 09/07/16 at 17:51; Status DC Oxycodone HCl (Roxicodone) 5 mg Q4H PRN PO pain 1-7; Start 09/07/16 at 18:00 Oxycodone HCl (Roxicodone) 10 mg Q4H PRN PO pain 8-10 Last administered on 09/11 07:43; Start 09/07/16 at 18:00 Morphine Sulfate 2 mg 2 mg Q3H PRN IV PUSH pain 1-10 Last administered on 21:37; Start 09/07/16 at 18:00; Stop 09/10/16 at 08:39; Status DC Vancomycin HCl 1000 mg/Sodium Chloride 250 ml @ 250 mls/hr Q12H IV ; Start at 10:00; Stop 09/08/16 at 10:00; Status DC Pharmacy Profile Note 0 ml @ 0 mls/hr UNSCH OTHER ; Start 09/08/16 at 09:15; Stop 09/08/16 at 21:49; Status DC Piperacillin Sod/ Tazobactam Sod (Zosyn 3.375 Gm Premix) 50 ml @ 100 mls/hr Q6H IV Last administered on 09/08/16 16:29; Start 09/08/16 at 10:00; Stop at 21:49; Status DC Ferrous Sulfate (Ferrous Sulfate) 325 mg BID@12,17 PO Last administered on 09/10 17:18; Start 09/08/16 at 12:00 Enoxaparin Sodium 40 mg 40 mg Q24H SQ Last administered on 09/10/16 08:51; Start 09/08/16 at 10:00 Vancomycin HCl/ Sodium Chloride (Vancomycin Inj/ NS 250 ml Inj) 250 ml @ 250 mls/hr Q12H IV Last administered on 09/08/16 10:32; Start 09/08/16 at 11:00; Stop 09/08/16 at 21:50; Status DC Miscellaneous Information SPECIFIC LAB TO BE KANU... ONCE ONCE .XX ; Start 09/09 at 22:45; Stop 09/09/16 at 22:46; Status Cancel Miscellaneous Information SPECIFIC LAB TO BE KANU... ONCE ONCE .XX ; Start 09/09 at 22:45; Stop 09/09/16 at 22:46; Status Cancel Methadone HCl 10 mg 10 mg Q12HR PO Last administered on 09/09/16 08:36; Start 09/08/16 at 14:30; Stop 09/09/16 at 08:56; Status DC Piperacillin Sod/ Tazobactam Sod 100 ml @ 200 mls/hr Q6H IV Last administered on 09/11/16 04:42; Start 09/08/16 at 23:00 Levofloxacin/ Dextrose (Levaquin 750 Mg Premix Inj) 150 ml @ 100 mls/hr Q24H IV Last administered on 09/10/16 20:54; Start 09/08/16 at 22:00 Methadone HCl (Dolophine) 20 mg Q12HR PO Last administered on 09/10/16 20:54; Start 09/09/16 at 21:00 Ketorolac Tromethamine (Toradol Inj) 15 mg Q8H IV PUSH Last administered on 03:03; Start 09/09/16 at 11:00; Stop 09/14/16 at 10:59 Docusate Sodium (Colace) 100 mg BID PO ; Start 09/09/16 at 09:00; Status UNV Morphine Sulfate (Morphine Inj) 1 mg Q3H PRN IV PUSH PAIN SCALE 1 TO 10 Last administered on 09/10/16 19:30; Start 09/10/16 at 09:00 Lidocaine HCl (Lidoderm 5% Patch.12 Hr) 1 patch DAILY T-DERMAL Last administered on 09/10/16 10:33; Start 09/10/16 at 10:00 Miscellaneous Information 1 DAILY T-DERMAL ; Start 09/10/16 at 10:00 A/P Assessment and Plan Acute-subacute appearing T11-12 discitis-osteomyelitis. Remote appearing C6-7 discitis-osteomyelitis. -MRI of the cervical and thoracic spine showed T11-12 discitis with diffuse enhancement of the T11 and T12 vertebral bodies characteristic of osteomyelitis. Paraspinal inflammatory tissue. Deformity of the C6 and C7 vertebral bodies with collapse of the disc and suspected partial ankylosis. -s/p bone aspiration on 09/07/16 by IR. -patient initially on Zosyn and vancomycin but aspiration growing Serratia. ID on board. vancomycin d/c on 09/08. On Levaquin and Zosyn. -Continue with current dose of methadone and Toradol. Roxycodone or morphine for breakthrough pain. We will also add Lidoderm patch. -Neurosurgeon per neurosurgeon no surgical intervention at the moment. Recommend T11-12 CT-guided biopsy if needed for diagnosis, check follow-up thoracic spine x-ray in approximately 10-14 days, and TLSO brace -continue TLSO with ambulating. History of IV drug use -Patient stated that he stopped any IV drug use 2 years ago. Opioid dependence -Patient stopped methadone 2 weeks ago. He was being seen in methadone clinic. Tobacco dependence -Smoking cessation. -on Nicotine patch. History of iron deficiency anemia -Patient hemoglobin is normal. Despite this he requests that he continues his iron. continue with iron. anxiety/bipolar/depression/ADHD -patient no on medication. DVT prophylaxis -SCDs. on lovenox. Discharge Planning Pending final recommendations and requires to IV antibiotics before discharge. Yaquelin Aguilar MD Sep 11, 2016 09:20
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
[2016-09-11] MEDS: METHADONE HCL 10 MG TAB PO SCH ×2 (09:29→20:37)
[2016-09-11] MEDS: SODIUM CHLORIDE 0.9% FLUSH 10 ML FLUSH IV FLUSH SCH ×2 (09:30→20:37)
[2016-09-11] MEDS: NICOTINE 14 MG/24 HR PATCH T-DERMAL SCH (09:30)
[2016-09-11] MEDS: LIDOCAINE HCL 5% PATCH T-DERMAL SCH (09:31)
[2016-09-11] MEDS: ENOXAPARIN SODIUM 40 MG/0.4 ML SYRINGE SQ SCH (09:33)
[2016-09-11] MEDS: MORPHINE SULFATE 4 MG/ML INJ IV PUSH PRN ×3 (10:36→23:48)
[2016-09-11] MEDS: FERROUS SULFATE 325 MG (65 MG ELEMENTAL IRON) TAB PO SCH ×2 (11:16→15:53)
[2016-09-11 12:00] VITALS: BP 127/85; PULSE 65; RESP 20; TEMP 97.8; O2SAT 98
[2016-09-11] MEDS ORDERED: OXYC-392 PO (15:03)
[2016-09-11] MEDS ORDERED: LIDO5DIS5 T-DERMAL (15:03)
[2016-09-11] MEDS ORDERED: METH10TA PO (15:03)
[2016-09-11 16:00] VITALS: BP 144/97; PULSE 63; RESP 19; TEMP 97.8; O2SAT 98
[2016-09-11 20:00] VITALS: BP 125/90; PULSE 68; RESP 20; TEMP 97.8; O2SAT 98
[2016-09-11] MEDS: REMOVE OLD PATCH T-DERMAL SCH (20:38)
[2016-09-11] MEDS: LEVOFLOXACIN 750 MG PREMIX INJ 150 ML IV SCH (21:25)
[2016-09-12] VITALS: BP 144/95; PULSE 62; RESP 20; TEMP 97.3; O2SAT 97
[2016-09-12] MEDS: KETOROLAC TROMETHAMINE 30 MG/ML (IVP) VIAL IV PUSH SCH ×2 (02:04→12:19)
[2016-09-12] MEDS: PIPERACIL-TAZO 4.5 GM PREMIX 100 ML IV SCH ×3 (05:27→16:38)
[2016-09-12 08:00] VITALS: BP 113/74; PULSE 94; RESP 17; TEMP 97.5; O2SAT 97
[2016-09-12] MEDS: LIDOCAINE HCL 5% PATCH T-DERMAL SCH (08:18)
[2016-09-12] MEDS: NICOTINE 14 MG/24 HR PATCH T-DERMAL SCH (08:18)
[2016-09-12] MEDS: SODIUM CHLORIDE 0.9% FLUSH 10 ML FLUSH IV FLUSH SCH (08:18)
[2016-09-12] MEDS: METHADONE HCL 10 MG TAB PO SCH (08:18)
[2016-09-12] MEDS: MORPHINE SULFATE 4 MG/ML INJ IV PUSH PRN (08:18)
[2016-09-12] MEDS: REMOVE OLD LIDOCAINE PATCH T-DERMAL SCH (08:19)
[2016-09-12] MEDS: ENOXAPARIN SODIUM 40 MG/0.4 ML SYRINGE SQ SCH (08:19)
[2016-09-12] MEDS: DOCUSATE SODIUM 50 MG/SENNA 8.6 MG TAB PO SCH (08:19)
[2016-09-12 12:00] VITALS: BP 105/68; PULSE 60; RESP 17; TEMP 96.3; O2SAT 98
[2016-09-12] MEDS: FERROUS SULFATE 325 MG (65 MG ELEMENTAL IRON) TAB PO SCH ×2 (12:19→16:37)
[2016-09-12 13:13] LABS: MEAN CELL VOLUME 80.1 FL (80.0-100.0); MEAN CORPUSCULAR HEMOGLOBIN 21.1 PG (27.0-34.0); PLATELET COUNT 159 TH/MM3 (150-450); RED BLOOD COUNT 5.74 MIL/MM3 (4.50-5.90); RED CELL DISTRIBUTION WIDTH 15.9 % (11.6-17.2); REVIEW FLAG FINAL; WHITE BLOOD COUNT 3.7 TH/MM3 (4.0-11.0)
--- NOTE | 2016-09-12 13:32 | HHI.IDPN ---
Subjective Subjective Remarks co back pain denies weakness, numbness no incontinence blood clx remain negative Antibiotics zosyn levaquine Allergies: Coded Allergies: Ceclor (Verified Adverse Reaction, Intermediate, RASH AND HIVES, 09/07/16) Uncoded Allergies: CYCLORE (Allergy, Unknown, 03/15/09) Objective . Vital Signs Date Time Temp Pulse Resp B/P Pulse Ox O2 Delivery O2 Flow Rate FiO2 09/12/16 12:00 96.3 60 17 105/68 98 09/12/16 08:00 97.5 94 17 113/74 97 09/12/16 03:04 18 09/12/16 03:04 18 09/12/16 00:00 97.3 62 20 144/95 97 09/11/16 23:53 18 09/11/16 21:37 18 09/11/16 20:00 97.8 68 20 125/90 98 09/11/16 16:00 97.8 63 19 144/97 98 09/11/16 09/11/16 09/12/16 15:00 23:00 07:00 Intake Total 1170 ml 490 ml 440 ml Output Total 700 ml Balance 470 ml 490 ml 440 ml Intake Oral 1080 ml 240 ml 240 ml IV Total 90 ml 250 ml 200 ml Output Urine Total 700 ml # Voids 2 5 # Bowel Movements 0 1 1 . Laboratory Tests Test 09/12/16 12:38 White Blood Count 3.7 TH/MM3 Red Blood Count 5.74 MIL/MM3 Hemoglobin 12.1 GM/DL Hematocrit 46.0 % Mean Corpuscular Volume 80.1 FL Mean Corpuscular Hemoglobin 21.1 PG Mean Corpuscular Hemoglobin 26.3 % Concent Red Cell Distribution Width 15.9 % Platelet Count 159 TH/MM3 Mean Platelet Volume 7.8 FL Laboratory Tests Test 09/10/16 14:39 Sodium Level 138 MEQ/L Potassium Level 4.6 MEQ/L Chloride Level 102 MEQ/L Carbon Dioxide Level 28.0 MEQ/L Anion Gap 8 MEQ/L Blood Urea Nitrogen 20 MG/DL Creatinine 1.25 MG/DL Estimat Glomerular Filtration 69 ML/MIN Rate Random Glucose 87 MG/DL Calcium Level 8.9 MG/DL Imaging Last Impressions Chest X-Ray 09/07/16 1121 Signed Impressions: Service Date/Time: August 12:26 - CONCLUSION: 1. No acute cardiopulmonary findings. Stable compared to previous dated 03/15/09. Audi Sarmiento MD Thoracic Spine MRI 09/07/16 0000 Signed Impressions: Service Date/Time: August 15:08 - CONCLUSION: T11-12 discitis with diffuse enhancement of the T11 and T12 vertebral bodies characteristic of osteomyelitis. Paraspinal inflammatory tissue. No evidence of epidural abscess or myelitis. Farhat Johnson MD Needle Biopsy/Aspiration X-Ray 09/07/16 Signed Impressions: Service Date/Time: August 18:08 - CONCLUSION: Uncomplicated needle biopsy of the T11/T12 disc space as above. Audi Sarmiento MD Cervical Spine MRI 09/07/16 0000 Signed Impressions: Service Date/Time: August 15:08 - CONCLUSION: Deformity of the C6 and C7 vertebral bodies with collapse of the disc and suspected partial ankylosis. There is mild enhancement along fused endplates and anterior epidural soft tissue which may represent scar tissue. These findings are most characteristic of either posttraumatic or postinflammatory disease. No significant active inflammatory disease is suspected. There is no evidence of epidural or paraspinal abscess or abnormal spinal cord enhancement. No acute bony abnormality or disc herniation. Farhat Johnson MD Abdomen/Pelvis CT 09/07/16 0000 Signed Impressions: Service Date/Time: August 12:48 - CONCLUSION: 1. Mild splenomegaly. 2. Disc space narrowing at T11-12 as well as sclerosis surrounding this disc level. MRI of the thoracic spine with contrast may be helpful for further evaluation if clinically indicated. Yonatan Cruz MD Physical Exam CONSTITUTIONAL/GENERAL: This is an adequately nourished patient, in no apparent distress. TUBES/LINES/DRAINS: SKIN: No jaundice, rashes, or lesions. OLd well healed scars LUE Skin temperature appropriate. Not diaphoretic. EYES: Extraocular motions intact. No scleral icterus. No injection or drainage. Fundi not examined. CARDIOVASCULAR: Regular rate and rhythm without murmurs, gallops, or rubs. No JVD. Peripheral pulses symmetric. RESPIRATORY/CHEST: Symmetric, unlabored respirations. Clear to auscultation. Breath sounds equal bilaterally. No wheezes, rales, or rhonchi. GASTROINTESTINAL: Abdomen soft, non-tender, nondistended. No hepato-splenomegaly , or palpable masses. Bowel sounds present. MUSCULOSKELETAL: Extremities without clubbing, cyanosis, or edema. BACK: tender to palpation NEUROLOGICAL: Awake and alert. Motor and sensory grossly within normal limits. Follows commands. Clear speech. Moves all extremities with 5/5 strengh PSYCHIATRIC: No obvious anxiety/depression. no apparent hallucinations or other psychotic thought process. Assessment & Plan Remarks Assessment and Plan T11 and T12 vertebral osteomyelitis, Serratia - cole S IVDU - dc zosyn - cont levaquin x 8 weeks PO - fu ESR CRP in 4 weeks - fu with Dr Jacinto as o/p OK to dc home He also needs blood work: CBC, creatineine, LFTs every 10-14 days while on levaquine Discussed Condition With Sumi Silver MD Sep 12, 2016 13:32
[2016-09-12] MEDS ORDERED: LEVO750T3 PO (13:33)
[2016-09-12 16:00] VITALS: BP 128/81; PULSE 69; RESP 18; TEMP 97; O2SAT 98
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
--- NOTE | 2016-09-12 16:22 | HHI.DS ---
Discharge Summary Admission Date Sep 07, 2016 at 16:58 Discharge Date: Sep 12, 2016 Admitting Diagnosis discitis, osteomyelitis, IV drug abuser (1) Discitis of thoracic region ICD Code: M46.44 Diagnosis: Principal (2) Osteomyelitis ICD Code: M86.9 Diagnosis: Principal (3) History of heroin abuse ICD Code: Z87.898 Diagnosis: Secondary Procedures See hospital course. Brief History - From Admission This is a 26-year-old male past medical history of IV drug use drug of choice is heroin who presented with intractable lower back pain. Patient stated 6 months ago he had lower back pain that was intermittent and resolved on its own. Patient then stated that 3 months ago pain occurred again but he started methadone from the methadone clinic in which pain resolved. Patient stated that he stopped methadone 2 weeks ago and did well off of it. He then stated that yesterday night after doing pushups he had severe lower back pain described as sharp radiating to his flank area that was constant. Patient stated last time he used IV drugs was 2 years ago. He denies any fevers or chills. Denies any lower extremity weakness. Patient also denied any urinary or fecal incontinence. Patient stated that he was given 95 mg daily of methadone but stopped it abruptly. He stated that he has a high tolerance for pain. CBC/BMP: 09/12/16 1238 09/10/16 1439 Significant Findings Laboratory Tests Test 09/10/16 09/12/16 14:39 12:38 Blood Urea Nitrogen 20 MG/DL (7-18) Estimat Glomerular Filtration 69 ML/MIN (>89) Rate White Blood Count 3.7 TH/MM3 (4.0-11.0) Hemoglobin 12.1 GM/DL (13.0-17.0) Mean Corpuscular Hemoglobin 21.1 PG (27.0-34.0) Mean Corpuscular Hemoglobin 26.3 % Concent (32.0-36.0) Imaging Last Impressions Chest X-Ray 09/07/16 1121 Signed Impressions: Service Date/Time: , September 07, 2016 12:26 - CONCLUSION: 1. No acute cardiopulmonary findings. Stable compared to previous dated 03/15/09. Audi Sarmiento MD Thoracic Spine MRI 09/07/16 0000 Signed Impressions: Service Date/Time: August 15:08 - CONCLUSION: T11-12 discitis with diffuse enhancement of the T11 and T12 vertebral bodies characteristic of osteomyelitis. Paraspinal inflammatory tissue. No evidence of epidural abscess or myelitis. Farhat Johnson MD Needle Biopsy/Aspiration X-Ray 09/07/16 0000 Signed Impressions: Service Date/Time: August 18:08 - CONCLUSION: Uncomplicated needle biopsy of the T11/T12 disc space as above. Audi Sarmiento MD Cervical Spine MRI 09/07/16 0000 Signed Impressions: Service Date/Time: August 15:08 - CONCLUSION: Deformity of the C6 and C7 vertebral bodies with collapse of the disc and suspected partial ankylosis. There is mild enhancement along fused endplates and anterior epidural soft tissue which may represent scar tissue. These findings are most characteristic of either posttraumatic or postinflammatory disease. No significant active inflammatory disease is suspected. There is no evidence of epidural or paraspinal abscess or abnormal spinal cord enhancement. No acute bony abnormality or disc herniation. Farhat Johnson MD Abdomen/Pelvis CT 09/07/16 0000 Signed Impressions: Service Date/Time: August 12:48 - CONCLUSION: 1. Mild splenomegaly. 2. Disc space narrowing at T11-12 as well as sclerosis surrounding this disc level. MRI of the thoracic spine with contrast may be helpful for further evaluation if clinically indicated. Yonatan Cruz MD PE at Discharge GENERAL: in NAD CARDIOVASCULAR: Regular rate and rhythm without murmurs, gallops, or rubs. RESPIRATORY: Breath sounds equal bilaterally. No accessory muscle use. GASTROINTESTINAL: Abdomen soft, non-tender, nondistended. MUSCULOSKELETAL: No cyanosis, or edema. + TTP of mid to lower back that has improved. Pt update on day of discharge Follow-up for discitis/osteomyelitis and uncontrolled pain Patient stated that his pain has been improving. He stated that he is not requiring any IV morphine. Patient stated that he wants to continue with the current oral medication and Lidoderm patch. Patient stated that he is ready to go home. He has no other complaints. He also stated that he will follow-up in the methadone clinic. Hospital Course Acute-subacute appearing T11-12 discitis-osteomyelitis. Remote appearing C6-7 discitis-osteomyelitis. -MRI of the cervical and thoracic spine showed T11-12 discitis with diffuse enhancement of the T11 and T12 vertebral bodies characteristic of osteomyelitis. Paraspinal inflammatory tissue. Deformity of the C6 and C7 vertebral bodies with collapse of the disc and suspected partial ankylosis. -s/p bone aspiration on 09/07/16 by IR. -patient initially on Zosyn and vancomycin but aspiration growing Serratia. ID on board. vancomycin d/c on 09/08. On Levaquin and Zosyn. -Patient was initially given oxycodone and morphine for breakthrough pain. But this has not helped with his pain. So he was started on methadone and Toradol and Roxicodone and morphine was continued for breakthrough pain. -This did help control the pain. Patient also asked for a Lidoderm patch in which that was prescribed. -Neurosurgeon was consulted per neurosurgeon no surgical intervention at the moment. Recommend T11-12 CT-guided biopsy if needed for diagnosis, check follow -up thoracic spine x-ray in approximately 10-14 days, and TLSO brace -Patient did well with that TLSO brace. -Per infectious disease on the day discharge can discharged on Levaquin and Zosyn can be discontinued. Levaquin was recommended for 8 weeks. With the follow-up ESR/CRP in 4 weeks. Patient was to follow-up with Dr Jacinto as o/p [phone]. In which he would need CBC, creatinine, LFTs every 10-14 days while on levaquin. History of IV drug use -Patient stated that he stopped any IV drug use 2 years ago. Opioid dependence -Patient stopped methadone 2 weeks ago. He was being seen in methadone clinic. Tobacco dependence -Smoking cessation. -on Nicotine patch. History of iron deficiency anemia -Patient hemoglobin is normal. Despite this he requests that he continues his iron. continue with iron. anxiety/bipolar/depression/ADHD -patient no on medication. -There were no signs of any acute episodes during his hospital course. Pt Condition on Discharge: Stable Discharge Disposition: Discharge Home Discharge Time: > 30 minutes Discharge Instructions DIET: Follow Instructions for: As Tolerated, No Restrictions Activities you can perform: See Additionl Instruction Other Activity Instructions: while out of bed wear TLSO Follow up Referrals: Infectious Disease - 09/19/16 with Marline Kaur MD Neurosurgery - 09/26/16 with Ashwin Fung MD PCP Follow-up - 1 Week New Medications: Levofloxacin (Levofloxacin) 750 Mg Tablet 750 MG PO DAILY Infection Days 60 Ref 0 TAB Lidocaine (Lidoderm) 5 % Adh..patch 1 PATCH T-DERMAL DAILY back pain #30 Ref 0 PATCH Methadone (Methadone) 10 Mg Tab 20 MG PO Q12HR Pain Management #20 Ref 0 TAB Oxycodone (Oxycodone) 5 Mg Tab 5 MG PO Q4H PRN moderate to severe pain #20 Ref 0 TAB Yaquelin Aguilar MD Sep 12, 2016 16:21
== END 2016-09-12 17:30 | disposition home or self-care (01) | DRG 478 ==
LOC: NEPE 10:42 → NEDA 16:58 → N07B 20:54
PROVIDERS: ADMIT Internal Medicine; ATTEND Family Medicine
PROC: 0P943ZX Drainage of Thoracic Vertebra, Percutaneous Approach, Diagnostic (ICD-10-PCS; principal; 2016-09-07)
DX: M46.24 Osteomyelitis of vertebra, thoracic region (principal); F11.20 Opioid dependence, uncomplicated; F32.9 Major depressive disorder, single episode, unspecified; F41.9 Anxiety disorder, unspecified; F17.210 Nicotine dependence, cigarettes, uncomplicated; F90.9 Attention-deficit hyperactivity disorder, unspecified type
CPT/HCPCS: 62267; 71010; 72156; 72157; 74177; 77002; 77003; 80048; 80053; 81001; 83605; 85025; 85027; 85610; 87040; 87070; 87077; 87186; 87205; 93005; 96361; 96374; 96375; 99152; A9579; J1650; J1885; J1956; J2250; J2270; J2543; J3010; J3370; J7030; J7050; L0200; L0484; Q9967

== ENCOUNTER 2016-10-09 13:28 | Emergency (ER) | payer OTHER ==
[~2016-10-09] VITALS: Ht 172.7 cm; Wt 67.0 kg
[~2016-10-09 13:28] MED LIST changes: -DOXY100T PO; +LEVO750T3 PO; +LIDO5DIS5 T-DERMAL; +METH10TA PO; +OXYC-392 PO; -SULF1TAB47 PO
[2016-10-09 13:31] VITALS: BP 126/78; PULSE 72; RESP 16; TEMP 98.2; O2SAT 98
[2016-10-09 14:38] VITALS: BP 127/80; PULSE 78
--- NOTE | 2016-10-09 14:50 | PD ---
HPI Chief Complaint: Pain: Acute or Chronic Time Seen by Provider: 14:35 Travel History International Travel<30 days: No Contact w/Intl Traveler<30days: No Traveled to known affect area: No History of Present Illness HPI 26-year-old male presents emergency department for evaluation of nontraumatic left shoulder pain 3 days. Patient reports he had recently been diagnosed with lumbar spine osteomyelitis to to IV drug abuse. He reports he was treated and discharged from the hospital is currently on an unknown oral antibiotic which she is compliant with. He denies fever or chills. He denies swelling, redness, tenderness of the left shoulder. He reports pain with range of motion only. PFSH Past Medical History Bipolar Disorder: Yes Anxiety: Yes Depression: Yes Cancer: No Cardiovascular Problems: Yes Diminished Hearing: No Endocrine: No Gastrointestinal Disorders: No Genitourinary: Yes Hypertension: Yes Immune Disorder: No Implanted Vascular Access Dvce: No Medical other: Yes (kidney failure) Musculoskeletal: Yes (osteomylitis) Neurologic: Yes Psychiatric: Yes Reproductive: No Respiratory: No Immunizations Current: Yes Migraines: Yes Renal Failure: Yes (ACUTE) Tetanus Vaccination: < 5 Years Past Surgical History Tonsillectomy: Yes Social History Alcohol Use: Yes (RARELY) Tobacco Use: Yes (1 PPD today) Substance Use: Yes (HEROIN, METHADONE, XANAX, (weed today)) Allergies-Medications (Allergen,Severity, Reaction): Coded Allergies: Ceclor (Verified Adverse Reaction, Intermediate, RASH AND HIVES, 09/07/16) Uncoded Allergies: CYCLORE (Allergy, Unknown, 03/15/09) Reported Meds & Prescriptions Reported Meds & Active Scripts Active Levofloxacin 750 Mg Tablet 750 Mg PO DAILY 60 Days Lidoderm (Lidocaine) 5 % Adh..patch 1 Patch T-DERMAL DAILY Oxycodone (Oxycodone HCl) 5 Mg Tab 5 Mg PO Q4H PRN Methadone (Methadone HCl) 10 Mg Tab 20 Mg PO Q12HR Review of Systems Except as stated in HPI: all other systems reviewed are Neg General / Constitutional: No: Fever Eyes: No: Visual changes HENT: No: Headaches Cardiovascular: No: Chest Pain or Discomfort Respiratory: No: Shortness of Breath Gastrointestinal: No: Abdominal Pain Genitourinary: No: Dysuria Musculoskeletal: Positive: Other (left shoulder pain) Physical Exam Narrative GENERAL: Well-nourished, well-developed patient. SKIN: Focused skin assessment warm/dry. HEAD: Normocephalic. EYES: No scleral icterus. No injection or drainage. NECK: Supple, trachea midline. No JVD or lymphadenopathy. CARDIOVASCULAR: Regular rate and rhythm without murmurs, gallops, or rubs. RESPIRATORY: Breath sounds equal bilaterally. No accessory muscle use. GASTROINTESTINAL: Abdomen soft, non-tender, nondistended. MUSCULOSKELETAL: No cyanosis, or edema. Mild tenderness to the left anterior shoulder. There is no joint erythema or swelling. There is no deformity. 2+ distal pulses. Patient has pain with full abduction. BACK: Nontender without obvious deformity. No CVA tenderness. Data Data Last Documented VS Vital Signs Date Time Temp Pulse Resp B/P Pulse Ox O2 Delivery O2 Flow Rate FiO2 10/09/16 14:38 78 127/80 10/09/16 13:31 98.2 16 98 Orders Shoulder, Complete (>2vws) (10/09/16 ) [facility] Medical Decision Making Medical Screen Exam Complete: Yes Emergency Medical Condition: Yes Differential Diagnosis Left shoulder pain-strain versus strain versus osteomyelitis Narrative Course 26-year-old male with chief complaint of nontraumatic left shoulder pain 3 days. Patient denies fever or chills, joint swelling, warmth or erythema. Physical exam is reassuring. Left shoulder is mildly tender in the anterior aspect. Patient has full active range of motion. There is no overlying warmth or erythema of the joint. X-ray of the shoulder shows no acute bony abnormality. This was discussed with patient.Return precautions discussed patient. He agrees to follow-up his primary care doctor. Diagnosis Primary Impression: Left shoulder pain Qualified Code: M25.512 - Acute pain of left shoulder Referrals: Primary Care Physician Additional Instructions: Take [id number] Motrin [id number] milligrams by mouth every 6-8 hours as needed for pain. Follow-up with her primary care doctor. Return to emergency department if he develops new or worsening symptoms such as fever or chills. Disposition: 01 DISCHARGE HOME Condition: Stable Dagmar Choe Oct 09, 2016 14:50
--- NOTE | 2016-10-09 15:35 | RADRPT ---
EXAM DATE/TIME: 10/09/2016 15:08 [place] COMPARISON: No previous studies available for comparison. INDICATIONS : Left shoulder pain. No known injury. MEDICAL HISTORY : IVDU. SURGICAL HISTORY : Right hand boxer's fracture. ENCOUNTER: Initial ACUITY: 2 weeks PAIN SCORE: 6/10 LOCATION: Left shoulder, joint FINDINGS: Multiple view examination of the left shoulder demonstrates no evidence of fracture or dislocation. The glenohumeral and acromioclavicular joints are maintained. There is normal range of motion betwee n internal and external rotation. Bony mineralization is normal. CONCLUSION: Unremarkable examination of the left shoulder. Valente Hair Jr., MD on October 09, 2016 at 15:33 Board Certified Radiologist. This report was verified electronically.
[2016-10-09 16:12] VITALS: BP 111/66
== END 2016-10-09 16:15 | disposition home or self-care (01) ==
LOC: NEPD 13:28
DX: M25.512 Pain in left shoulder (principal)
CPT/HCPCS: 73030; 99283